=== PATIENT | male | born 1955 | race Caucasian/White ===

== ENCOUNTER 2019-12-11 21:03 | Inpatient (IN) | payer MEDICAID, SELFPAY ==
--- NOTE | 2019-12-11 | ECG_ITS ---
Test Reason : AMS Blood Pressure : / mmHG Vent. Rate : 102 BPM Atrial Rate : 102 BPM P-R Int : 142 ms QRS Dur : 096 ms QT Int : 332 ms P-R-T Axes : 054 004 032 degrees QTc Int : 432 ms Sinus tachycardia RSR' or QR pattern in V1 suggests right ventricular conduction delay Otherwise normal ECG No previous ECGs available Referred By: Generic ED Physician Electronically Signed By:BINTA CARMEN MD
[2019-12-11 21:06] VITALS: BP 105/56; BP 114/70; PULSE 109; RESP 18; TEMP 37.7; O2SAT 96; BMI 16.2
--- NOTE | 2019-12-11 22:15 | PC.NURSE ---
PT ARRIVES FROM [facility] AFTER REPORTS OF INCREASED LETHARGY, FEVERS >100.4 AND COUGH. COVID + IN MAY. PT WARM TO TOUCH, ALERT TO PERSON ONLY, AT BASELINE. LUNG SOUNDS DIM, RALES IN LOWER LOBES. 18G IN L AC. S SLIGHTLY TACHYCARDIC IN SR ON CAN CONVEYOR FEEDER. SEPTIC PROTOCOL INITIATED.
--- NOTE | 2019-12-11 22:21 | ED_ITS ---
HPI - General Adult General Chief complaint: Altered Mental Status Stated complaint: FEVER/WEAKNESS Time Seen by Provider: 12/11/19 21:57 Source: patient Mode of arrival: EMS Limitations: altered mental status History of Present Illness HPI narrative: patient comes to the emergency room via EMS from [facility] Darion wynn was sent here for worsening lethargy and fever. Patient is unable to give any history MD complaint: fever, lethargy Onset (ago): hour(s) Severity: moderate Related Data Home Medications Medication Instructions Recorded Confirmed gemfibrozil [Lopid] 600 mg PO BID 12/12/19 12/12/19 hydrocortisone acetate [Tucks 1 ea Q4-5H PRN 12/12/19 12/12/19 Hydrocortisone] ibuprofen 600 mg PO Q6H PRN 12/12/19 12/12/19 risperidone 3 mg PO BID 12/12/19 12/12/19 sennosides [senna] 8.6 mg PO DAILY PRN 12/12/19 12/12/19 tramadol 100 mg PO BID PRN 12/12/19 12/12/19 Allergies Allergy/AdvReac Type Severity Reaction Status Date / Time No Known Allergies Allergy Verified 12/11/19 21:13 Review of Systems Review of Systems: Yes Unobtainable due to mental condition PMFSH Past Medical History Medical History Hyperlipidemia Hypertension Schizophrenia Social History Social History Alcohol intake: unknown Smoking Status: Unknown if ever smoked Use of substances other than those prescribed or required for medical reasons: Unknown Advance Directives: No Advance Directives Information Provided: No Physical Exam Vital Signs: Vital Signs: Vital Signs Temp Pulse Resp BP Pulse Ox 12/12/19 04:59 100.1 F 90 18 126/70 96 12/12/19 02:55 101 F H 110 H 20 119/43 L 96 12/12/19 00:51 101.6 F H 104 H 22 H 133/65 96 12/11/19 23:25 99 25 H 116/60 99 12/11/19 21:06 99.9 F 109 H 18 105/56 L 96 Body Mass Index 16.2 Appearance: Alert. Oriented X1 at baseline. No acute distress. Eyes: Pupils equal, round and reactive to light. ENT: Pharynx normal. Neck: Normal inspection. Neck supple. No lymph nodes noted. No crepitus CVS: mildly tachycardic, normal rhythm. Pulses normal. Normal S1 and S2 Respiratory: No respiratory distress. bilateral rales and crackles Abdomen: Soft and nontender. No rigidity. No distention. good BS x4 Skin: Skin warm and clammy. Normal skin color. Extremities: No lower extremity edema. No lower extremity edema. No Lacerations. No Rash Neuro: Oriented X 3. No motor deficit. No sensory deficit. Moving all extermities. No slurred speech. Course Course Course Narrative: Patient continues having fever. At this moment, no source of infection has identified. Patient has fever of unknown origin, at this time (3:05am), sepsis is not suspected, CT of abdomen pending Medical Decision Making Lab Data Result diagrams: 12/11/19 22:27 12/11/19 22:27 Labs: Lab Results 12/11/19 12/11/19 12/11/19 Range/Units 22:27 22:27 22:27 WBC 12.7 H (4.8-10.8) X10*3/uL RBC 4.18 L (4.60-5.80) X10*6/uL Hgb 12.2 L (14.0-18.0) g/dl Hct 37.1 L (42-52) % MCV 88.8 (80-98) fL MCH 29.2 (27.0-33.0) pg MCHC 32.9 (31.0-36.0) g/dl RDW 13.2 (11.0-16.0) % Plt Count 152 L (160-400) X10*3/uL MPV 10.5 (9.4-12.4) fL Immature Gran % (Auto) 0.4 (0.0-0.4) % Neut % (Auto) 81.1 H (45-73) % Lymph % (Auto) 11.6 L (20-40) % Gillespie % (Auto) 6.6 (2-11) % Eos % (Auto) 0.1 (0-4) % Baso % (Auto) 0.2 (0-2) % Lymph # (Auto) 1.5 (1.2-4.9) X10*3/uL Gillespie # (Auto) 0.8 (0.1-1.2) X10*3/uL Eos # (Auto) 0.0 (0.0-0.4) X10*3/uL Baso # (Auto) 0.0 (0.0-0.2) X10*3/uL Abs Immat Gran (auto) 0.05 H (0.00-0.03) X10*3/uL Absolute Neuts (auto) 10.3 H (2.0-8.3) X10*3/uL Absolute Nucleated RBC 0.000 (0.0-0.012) X10*3/uL Nucleated RBC % (auto) 0.0 (0.0-0.2) /100WBC Hold Blue Top SEE NOTE Sodium 137 (135-145) mmol/L Potassium 4.1 (3.3-5.1) mmol/l Chloride 102 (96-108) mmol/L Carbon Dioxide 24 (22-29) mmol/L Anion Gap 15 (12-20) BUN 11 (9-16) mg/dL Creatinine 0.82 (0.5-1.4) mg/dL Estim Creat Clear Calc 62.5 Estimated GFR > 60 Random Glucose 108 (60-115) mg/dL Lactic Acid (0.5-2.0) mmol/L Calcium 8.9 (8.4-10.2) mg/dL Total Bilirubin 0.5 (0.0-1.0) mg/dL Direct Bilirubin 0.3 (0.0-0.5) mg/dL AST 37 (5-37) U/L ALT 30 (0-40) U/L Alkaline Phosphatase 69 (39-117) U/L Total Protein 7.5 (6.5-8.0) g/dL Albumin 4.5 (3.5-5.0) g/dL Urine Color Urine Appearance Urine pH (5.0-8.0) Ur Specific [place] (1.005-1.025) Urine Protein (NEG-TRACE) MG/DL Urine Glucose (UA) (NEG) MG/DL Urine Ketones (NEG) MG/DL Urine Blood (NEG) Urine Nitrite (NEG) Ur Leukocyte Esterase (NEG) Urine Opiates Screen (Not Detect) Ur Barbiturates Screen (Not Detect) Ur Phencyclidine Scrn (Not Detect) Ur Amphetamines Screen (Not Detect) U Benzodiazepines Scrn (Not Detect) Urine Cocaine Screen (Not Detect) U Marijuana (THC) Screen (Not Detect) Ethyl Alcohol mg/dL Coronavirus (PCR) (Negative) 12/11/19 12/11/19 12/11/19 Range/Units 22:27 22:27 22:40 WBC (4.8-10.8) X10*3/uL RBC (4.60-5.80) X10*6/uL Hgb (14.0-18.0) g/dl Hct (42-52) % MCV (80-98) fL MCH (27.0-33.0) pg MCHC (31.0-36.0) g/dl RDW (11.0-16.0) % Plt Count (160-400) X10*3/uL MPV (9.4-12.4) fL Immature Gran % (Auto) (0.0-0.4) % Neut % (Auto) (45-73) % Lymph % (Auto) (20-40) % Gillespie % (Auto) (2-11) % Eos % (Auto) (0-4) % Baso % (Auto) (0-2) % Lymph # (Auto) (1.2-4.9) X10*3/uL Gillespie # (Auto) (0.1-1.2) X10*3/uL Eos # (Auto) (0.0-0.4) X10*3/uL Baso # (Auto) (0.0-0.2) X10*3/uL Abs Immat Gran (auto) (0.00-0.03) X10*3/uL Absolute Neuts (auto) (2.0-8.3) X10*3/uL Absolute Nucleated RBC (0.0-0.012) X10*3/uL Nucleated RBC % (auto) (0.0-0.2) /100WBC Hold Blue Top Sodium (135-145) mmol/L Potassium (3.3-5.1) mmol/l Chloride (96-108) mmol/L Carbon Dioxide (22-29) mmol/L Anion Gap (12-20) BUN (9-16) mg/dL Creatinine (0.5-1.4) mg/dL Estim Creat Clear Calc Estimated GFR Random Glucose (60-115) mg/dL Lactic Acid 1.9 (0.5-2.0) mmol/L Calcium (8.4-10.2) mg/dL Total Bilirubin (0.0-1.0) mg/dL Direct Bilirubin (0.0-0.5) mg/dL AST (5-37) U/L ALT (0-40) U/L Alkaline Phosphatase (39-117) U/L Total Protein (6.5-8.0) g/dL Albumin (3.5-5.0) g/dL Urine Color YELLOW Urine Appearance CLEAR Urine pH 5.5 (5.0-8.0) Ur Specific [place] 1.010 (1.005-1.025) Urine Protein NEG (NEG-TRACE) MG/DL Urine Glucose (UA) NEG (NEG) MG/DL Urine Ketones NEG (NEG) MG/DL Urine Blood NEG (NEG) Urine Nitrite NEG (NEG) Ur Leukocyte Esterase NEG (NEG) Urine Opiates Screen (Not Detect) Ur Barbiturates Screen (Not Detect) Ur Phencyclidine Scrn (Not Detect) Ur Amphetamines Screen (Not Detect) U Benzodiazepines Scrn (Not Detect) Urine Cocaine Screen (Not Detect) U Marijuana (THC) Screen (Not Detect) Ethyl Alcohol < 10 mg/dL Coronavirus (PCR) (Negative) 12/11/19 12/12/19 Range/Units 22:40 00:52 WBC (4.8-10.8) X10*3/uL RBC (4.60-5.80) X10*6/uL Hgb (14.0-18.0) g/dl Hct (42-52) % MCV (80-98) fL MCH (27.0-33.0) pg MCHC (31.0-36.0) g/dl RDW (11.0-16.0) % Plt Count (160-400) X10*3/uL MPV (9.4-12.4) fL Immature Gran % (Auto) (0.0-0.4) % Neut % (Auto) (45-73) % Lymph % (Auto) (20-40) % Gillespie % (Auto) (2-11) % Eos % (Auto) (0-4) % Baso % (Auto) (0-2) % Lymph # (Auto) (1.2-4.9) X10*3/uL Gillespie # (Auto) (0.1-1.2) X10*3/uL Eos # (Auto) (0.0-0.4) X10*3/uL Baso # (Auto) (0.0-0.2) X10*3/uL Abs Immat Gran (auto) (0.00-0.03) X10*3/uL Absolute Neuts (auto) (2.0-8.3) X10*3/uL Absolute Nucleated RBC (0.0-0.012) X10*3/uL Nucleated RBC % (auto) (0.0-0.2) /100WBC Hold Blue Top Sodium (135-145) mmol/L Potassium (3.3-5.1) mmol/l Chloride (96-108) mmol/L Carbon Dioxide (22-29) mmol/L Anion Gap (12-20) BUN (9-16) mg/dL Creatinine (0.5-1.4) mg/dL Estim Creat Clear Calc Estimated GFR Random Glucose (60-115) mg/dL Lactic Acid (0.5-2.0) mmol/L Calcium (8.4-10.2) mg/dL Total Bilirubin (0.0-1.0) mg/dL Direct Bilirubin (0.0-0.5) mg/dL AST (5-37) U/L ALT (0-40) U/L Alkaline Phosphatase (39-117) U/L Total Protein (6.5-8.0) g/dL Albumin (3.5-5.0) g/dL Urine Color Urine Appearance Urine pH (5.0-8.0) Ur Specific [place] (1.005-1.025) Urine Protein (NEG-TRACE) MG/DL Urine Glucose (UA) (NEG) MG/DL Urine Ketones (NEG) MG/DL Urine Blood (NEG) Urine Nitrite (NEG) Ur Leukocyte Esterase (NEG) Urine Opiates Screen Not Detected (Not Detect) Ur Barbiturates Screen Not Detected (Not Detect) Ur Phencyclidine Scrn Not Detected (Not Detect) Ur Amphetamines Screen Not Detected (Not Detect) U Benzodiazepines Scrn POSITIVE H (Not Detect) Urine Cocaine Screen Not Detected (Not Detect) U Marijuana (THC) Screen Not Detected (Not Detect) Ethyl Alcohol mg/dL Coronavirus (PCR) NEGATIVE (Negative) Imaging Data Chest x-ray: Radiologist's impression: Lung volume is low. This causes crowding of the bronchovascular markings. Allowing for low inspiratory effort there does not appear to be significant pulmonary vascular congestion. There is no focal consolidation. There is no pleural effusion. The heart size is normal. The cardiac and mediastinal contours are normal. There are calcifications of the thoracic aorta. There are multilevel degenerative changes of dorsal spine. EKG: Sinus rhythm, heart rate 102, QTC 432, no ST elevations or depressions, no T-wave inversions CT chest: 1. No suspicious findings for pneumonia. 2. Enlarged subcarinal lymph node which may be reactive, though a malignant etiology would be difficult to entirely exclude in the proper clinical setting. 3. Nonspecific subpleural reticulation bilaterally, suboptimally assessed in the setting of respiratory motion artifact. Mild fibrosis cannot be excluded. 4. Coronary artery calcifications. Correlation with cardiac risk factors is recommended. 5. Splenomegaly. 6. Chronic appearing anterior wedge T12 compression deformity. CT of the abdomen: 1. No acute findings identified in the abdomen/pelvis. 2. Splenomegaly. I discussed with our hospitalist, the source of infection is unclear. Discharge Plan Discharge Clinical Impression: Fever of unknown origin Altered mental status Qualifiers: Altered mental status type: unspecified Qualified Code(s): R41.82 - Altered mental status, unspecified Patient Disposition: Admitted As Inpatient
--- NOTE | 2019-12-11 22:31 | XR_ITS ---
EXAMINATION: XR CHEST CLINICAL INFORMATION: Sepsis COMPARISON: None TECHNIQUE: Frontal portable view of the chest was obtained. 10:50 PM FINDINGS: Lung volume is low. This causes crowding of the bronchovascular markings. Allowing for low inspiratory effort there does not appear to be significant pulmonary vascular congestion. There is no focal consolidation. There is no pleural effusion. The heart size is normal. The cardiac and mediastinal contours are normal. There are calcifications of the thoracic aorta. There are multilevel degenerative changes of dorsal spine. IMPRESSION: No acute abnormality of chest.
[2019-12-11 22:35] LABS: Basophils Percent Auto 0.2 % (0-2); Eosinophils Percent Auto 0.1 % (0-4); Hematocrit 37.1 % (42-52); Hemoglobin 12.2 g/dl (14.0-18.0); Imm Gran Abs Auto 0.05 X10*3/uL (0.00-0.03); Imm Gran Pct Auto 0.4 % (0.0-0.4); Lymphocytes Absolute Auto 1.5 X10*3/uL (1.2-4.9); Lymphocytes Percent Auto 11.6 % (20-40); MANUAL DIFF FLAG NO; Mean Corpuscular HGB Conc 32.9 g/dl (31.0-36.0); Mean Corpuscular Hemoglobin 29.2 pg (27.0-33.0); Mean Corpuscular Volume 88.8 fL (80-98); Mean Platelet Volume 10.5 fL (9.4-12.4); Monocytes Absolute Auto 0.8 X10*3/uL (0.1-1.2); Monocytes Percent Auto 6.6 % (2-11); Neutrophils Absolute Auto 10.3 X10*3/uL (2.0-8.3); Neutrophils Percent Auto 81.1 % (45-73); Platelet Count 152 X10*3/uL (160-400); Red Blood Count 4.18 X10*6/uL (4.60-5.80); Red Cell Distribution Width 13.2 % (11.0-16.0); White Blood Count 12.7 X10*3/uL (4.8-10.8)
[2019-12-11 22:46] LABS: Glucose Urine UA NEG (NEG); Leukocyte Esterase Urine NEG (NEG); Nitrite Urine NEG (NEG); PH 5.5 (5.0-8.0); Urine Blood NEG (NEG); Urine Ketones NEG (NEG); Urine Protein NEG (NEG-TRACE)
[2019-12-11 22:47] LABS: Appearance Urine CLEAR; Color Urine YELLOW
[2019-12-11 22:56] LABS: Lactic Acid 1.9 mmol/L (0.5-2.0)
[2019-12-11 22:57] LABS: Ethanol < 10 mg/dL
[2019-12-11 22:59] LABS: Anion Gap 15 (12-20); Blood Urea Nitrogen 11 mg/dL (9-16); Calcium 8.9 mg/dL (8.4-10.2); Carbon Dioxide 24 mmol/L (22-29); Chloride 102 mmol/L (96-108); Creatinine Clr Calc Pharmacy 62.5; Estimated Glomerular Filt Rate > 60; Glucose Random 108 mg/dL (60-115); Potassium 4.1 mmol/l (3.3-5.1); Sodium 137 mmol/L (135-145)
[2019-12-11 23:16] LABS: Amphetamine Screen Urine Not Detected (Not Detect); Barbiturates, Urine Not Detected (Not Detect); Benzodiazepines Screen Urine POSITIVE (Not Detect); Cannabinoid Screen Urine Not Detected (Not Detect); Cocaine Screen Urine Not Detected (Not Detect); Opiate Screen Urine Not Detected (Not Detect); Phencyclidine Screen Urine Not Detected (Not Detect)
--- NOTE | 2019-12-11 23:23 | PC.NURSE ---
pt coming from [facility]. report taken from layla connor. pt at baseline per [facility] staff is calm and cooperative and independant at baseline. arrives with fever. given rectal tylenol by this rn. tolerated well. pending labs.
[2019-12-11 23:25] VITALS: BP 116/60; PULSE 99; RESP 25; O2SAT 99
[2019-12-11 23:49] LABS: Alanine Aminotransferase 30 U/L (0-40); Albumin Level 4.5 g/dL (3.5-5.0); Alkaline Phosphatase 69 U/L (39-117); Aspartate Amino Transferase 37 U/L (5-37); Bilirubin Direct 0.3 mg/dL (0.0-0.5); Bilirubin Total 0.5 mg/dL (0.0-1.0); Total Protein 7.5 g/dL (6.5-8.0)
[2019-12-12] VITALS (9 sets, daily range): BP systolic 113–137; BP diastolic 43–70; PULSE 81–110; RESP 18–22; TEMP 36.7–38.7; O2SAT 95–98; BMI 16.2
--- NOTE | 2019-12-12 00:53 | PC.NURSE ---
after rectal tylenol rectal temp 101.6 provider aware. other vitals wnl. pt swabbed for covid
--- NOTE | 2019-12-12 01:12 | CT_ITS ---
EXAMINATION: CT CHEST WITHOUT CONTRAST CLINICAL INFORMATION: Rule out pneumonia COMPARISON: 12/11/2019 TECHNIQUE: Multidetector volumetric CT imaging of the chest was done. Axial MIP volume rendering provided. Sagittal and coronal reformatted images were obtained. This CT examination was performed using dose optimization techniques as appropriate, variously including the following: *Automated exposure control *Adjustment of mA and/or kV according to patient size (this includes techniques or standardized protocols for targeted exams where dose is matched to indication/reason for exam; i.e. extremities or head) *Use of iterative reconstruction technique DLP: 368 mGy-cm FINDINGS: LUNGS: Suboptimal assessment due to respiratory motion artifact. No dense consolidations bilaterally. There is mild dependent opacity in the lower lobes favoring atelectasis. There is subpleural reticulation bilaterally, and a component of fibrosis cannot be excluded. MEDIASTINUM: The visualized thyroid gland is unremarkable. There is an enlarged subcarinal lymph node measuring 1.4 cm in short axis dimension. Scattered subcentimeter lymph nodes are present throughout the mediastinum. Cardiac size is within normal limits; no pericardial effusion. Coronary artery calcifications are present. Scattered atherosclerotic calcifications are present. PLEURA: There is no pleural effusion. No pleural mass or thickening. AXILLA: No lymphadenopathy. UPPER ABDOMEN: Calcified granulomas noted in the liver. Mildly enlarged spleen, measuring 14.6 cm in the axial plane. Calcifications in the left renal violette may be vascular. OSSEOUS STRUCTURES: Degenerative changes are noted in the spine. There is chronic appearing anterior compression deformity of T12. IMPRESSION: 1. No suspicious findings for pneumonia. 2. Enlarged subcarinal lymph node which may be reactive, though a malignant etiology would be difficult to entirely exclude in the proper clinical setting. 3. Nonspecific subpleural reticulation bilaterally, suboptimally assessed in the setting of respiratory motion artifact. Mild fibrosis cannot be excluded. 4. Coronary artery calcifications. Correlation with cardiac risk factors is recommended. 5. Splenomegaly. 6. Chronic appearing anterior wedge T12 compression deformity.
[2019-12-12 02:04] LABS: SARS COV2 PCR INHOUSE NEGATIVE (Negative)
--- NOTE | 2019-12-12 02:59 | CT_ITS ---
EXAMINATION: CT ABDOMEN AND PELVIS WITH CONTRAST CLINICAL INFORMATION: Sepsis, unknown source COMPARISON: None TECHNIQUE: Multidetector volumetric images were obtained from the superior aspect of the liver through the pubic symphysis following administration 85 mL of Omnipaque 350 intravenous contrast. Sagittal and coronal reformatted images were obtained on the technologist's workstation. Oral contrast: No This CT examination was performed using dose optimization techniques as appropriate, variously including the following: *Automated exposure control *Adjustment of mA and/or kV according to patient size (this includes techniques or standardized protocols for targeted exams where dose is matched to indication/reason for exam; i.e. extremities or head) *Use of iterative reconstruction technique DLP: 589 mGy-cm FINDINGS: Partially limited assessment in some regions due to motion artifact. LUNG BASES: Bibasilar subsegmental atelectasis. LIVER, GALLBLADDER, AND BILIARY TREE: The liver is normal in size, shape, and attenuation. No focal hepatic lesion or biliary ductal dilatation is present. The gallbladder is unremarkable with no evidence of radiopaque gallstones, gallbladder wall thickening, or obvious pericholecystic inflammatory changes. PANCREAS: Unremarkable. SPLEEN: Enlarged, measuring approximately 14.6 cm in the axial plane. ADRENAL GLANDS: Unremarkable. KIDNEYS AND URETERS: The kidneys are normal in size, shape, and attenuation. No hydronephrosis, hydroureter, or obstructing calculi seen. No perinephric stranding. BLADDER: Unremarkable. GASTROINTESTINAL TRACT: The small and large bowel are unremarkable. The appendix is unremarkable. No free fluid or free air is seen. ABDOMINAL WALL: Fat-containing right inguinal hernia. LYMPH NODES: Normal. VASCULAR: There is atherosclerotic calcification along the aorta and iliac arteries. PELVIC VISCERA: Unremarkable. OSSEOUS STRUCTURES: Chronic appearing anterior wedge compression deformity of T12. IMPRESSION: 1. No acute findings identified in the abdomen/pelvis. 2. Splenomegaly.
[2019-12-12] MEDS: Piperacillin Sodium/Tazobactam 3.375 GM in 0.9 % Sodium Chloride 50 ML IV (03:25)
[2019-12-12] MEDS: 0.9 % Sodium Chloride 1,000 ML 999 ML IVCONT (03:26)
[2019-12-12] MEDS: Acetaminophen 325 MG TABLET 650 MG PO (03:27)
[2019-12-12] MEDS: Acetaminophen Supp 650 MG SUPP.RECT PR (03:29)
[2019-12-12] MEDS: iohexoL 350 MG/ML 100 ML INFUS..BTL 85 ML IV (03:59)
--- NOTE | 2019-12-12 05:37 | PC.NURSE ---
pending report to floor at this time.
--- NOTE | 2019-12-12 06:05 | P.HPIM_ITS ---
History of Present Illness Date of Service: 12/12/19 Chief Complaint: fever and lethargy 64-year-old male resident of [facility] who presents to the hospice with lethargy, cough and fever. patient is only oriented to self at baseline. he is currently lethargic and unable to give any history. It appears the patient was found with lethargy and fever at intermediate. Unable to obtain full review of system is patient the disoriented at baseline P on arrival to the ED patient has a temperature of 101.6?, heart rate of 104, respiratory rate of 22 blood pressure of 133/65 and satting 96% on room labs are significant for WBC count 12.7, otherwise unremarkable. Imaging done in the ED showed negative chest x-ray, chest CT showed no suspicion finding for pneumonia, enlarged sub carinal lymph node which may be reactive cup nonspecific subpleural reticulation bilaterally suboptimally assessed in the setting of respiratory motion are to, mild fibrosis cannot be excluded, abdominal CT showed no acute abdominal findings COVID-19 neg I am unable to obtain any history from patient as he is clinically unable to give patient is also new to our system past medical history: Diabetes, schizophrenia past surgical history: Unknown family history: unknown social history: Comes from [facility], oriented to self own at baseline Review of Systems Review of Systems: was unable to review [facility] Medical History Hyperlipidemia Hypertension Schizophrenia Social History Alcohol intake: unknown Smoking Status: Unknown if ever smoked Use of substances other than those prescribed or required for medical reasons: Unknown Advance Directives: No Advance Directives Information Provided: No Meds Allergies Allergy/AdvReac Type Severity Reaction Status Date / Time No Known Allergies Allergy Verified 12/11/19 21:13 Home Medications Medication Instructions Recorded Confirmed Type gemfibrozil [Lopid] 600 mg PO BID 12/12/19 12/12/19 History hydrocortisone acetate [Tucks 1 ea Q4-5H PRN 12/12/19 12/12/19 History Hydrocortisone] ibuprofen 600 mg PO Q6H PRN 12/12/19 12/12/19 History risperidone 3 mg PO BID 12/12/19 12/12/19 History sennosides [senna] 8.6 mg PO DAILY PRN 12/12/19 12/12/19 History tramadol 100 mg PO BID PRN 12/12/19 12/12/19 History Physical Exam Vital Signs and Narrative: Vital Signs: Last Vital Signs Temp 100.1 F 12/12/19 04:59 Pulse 90 12/12/19 04:59 Resp 18 12/12/19 04:59 BP 126/70 12/12/19 04:59 Pulse Ox 96 12/12/19 04:59 Body Mass Index 16.2 Const: General: cooperative and no acute distress Eyes: General: appearance normal, both eyes and all related structures Resp: Effort & Inspection: normal respiratory effort and able to speak in complete sentences Auscultation: clear to auscultation bilaterally Cardio: Rate: regular rate Rhythm: regular rhythm GI: Palpation (GI): Soft to palpation Auscultation: normal bowel sounds Skin: General skin exam: no rashes or lesions noted Neuro: Cognition (Neuro): normal cognition Extrem: General: Yes normal to inspection Results Labs Labs: Laboratory Tests 12/11/19 12/11/19 12/11/19 22:27 22:27 22:27 WBC 12.7 H RBC 4.18 L Hgb 12.2 L Hct 37.1 L MCV 88.8 MCH 29.2 MCHC 32.9 RDW 13.2 Plt Count 152 L MPV 10.5 Immature Gran % (Auto) 0.4 Neut % (Auto) 81.1 H Lymph % (Auto) 11.6 L Carlisle % (Auto) 6.6 Eos % (Auto) 0.1 Baso % (Auto) 0.2 Lymph # (Auto) 1.5 Carlisle # (Auto) 0.8 Eos # (Auto) 0.0 Baso # (Auto) 0.0 Abs Immat Gran (auto) 0.05 H Absolute Neuts (auto) 10.3 H Absolute Nucleated RBC 0.000 Nucleated RBC % (auto) 0.0 Hold Blue Top SEE NOTE Sodium 137 Potassium 4.1 Chloride 102 Carbon Dioxide 24 Anion Gap 15 BUN 11 Creatinine 0.82 Estim Creat Clear Calc 62.5 Estimated GFR > 60 Random Glucose 108 Lactic Acid Calcium 8.9 Total Bilirubin 0.5 Direct Bilirubin 0.3 AST 37 ALT 30 Alkaline Phosphatase 69 Total Protein 7.5 Albumin 4.5 Urine Color Urine Appearance Urine pH Ur Specific Bowman Urine Protein Urine Glucose (UA) Urine Ketones Urine Blood Urine Nitrite Ur Leukocyte Esterase Urine Opiates Screen Ur Barbiturates Screen Ur Phencyclidine Scrn Ur Amphetamines Screen U Benzodiazepines Scrn Urine Cocaine Screen U Marijuana (THC) Screen Ethyl Alcohol Coronavirus (PCR) 12/11/19 12/11/19 12/11/19 22:27 22:27 22:40 WBC RBC Hgb Hct MCV MCH MCHC RDW Plt Count MPV Immature Gran % (Auto) Neut % (Auto) Lymph % (Auto) Carlisle % (Auto) Eos % (Auto) Baso % (Auto) Lymph # (Auto) Carlisle # (Auto) Eos # (Auto) Baso # (Auto) Abs Immat Gran (auto) Absolute Neuts (auto) Absolute Nucleated RBC Nucleated RBC % (auto) Hold Blue Top Sodium Potassium Chloride Carbon Dioxide Anion Gap BUN Creatinine Estim Creat Clear Calc Estimated GFR Random Glucose Lactic Acid 1.9 Calcium Total Bilirubin Direct Bilirubin AST ALT Alkaline Phosphatase Total Protein Albumin Urine Color YELLOW Urine Appearance CLEAR Urine pH 5.5 Ur Specific Bowman 1.010 Urine Protein NEG Urine Glucose (UA) NEG Urine Ketones NEG Urine Blood NEG Urine Nitrite NEG Ur Leukocyte Esterase NEG Urine Opiates Screen Ur Barbiturates Screen Ur Phencyclidine Scrn Ur Amphetamines Screen U Benzodiazepines Scrn Urine Cocaine Screen U Marijuana (THC) Screen Ethyl Alcohol < 10 Coronavirus (PCR) 12/11/19 12/12/19 22:40 00:52 WBC RBC Hgb Hct MCV MCH MCHC RDW Plt Count MPV Immature Gran % (Auto) Neut % (Auto) Lymph % (Auto) Carlisle % (Auto) Eos % (Auto) Baso % (Auto) Lymph # (Auto) Carlisle # (Auto) Eos # (Auto) Baso # (Auto) Abs Immat Gran (auto) Absolute Neuts (auto) Absolute Nucleated RBC Nucleated RBC % (auto) Hold Blue Top Sodium Potassium Chloride Carbon Dioxide Anion Gap BUN Creatinine Estim Creat Clear Calc Estimated GFR Random Glucose Lactic Acid Calcium Total Bilirubin Direct Bilirubin AST ALT Alkaline Phosphatase Total Protein Albumin Urine Color Urine Appearance Urine pH Ur Specific Bowman Urine Protein Urine Glucose (UA) Urine Ketones Urine Blood Urine Nitrite Ur Leukocyte Esterase Urine Opiates Screen Not Detected Ur Barbiturates Screen Not Detected Ur Phencyclidine Scrn Not Detected Ur Amphetamines Screen Not Detected U Benzodiazepines Scrn POSITIVE H Urine Cocaine Screen Not Detected U Marijuana (THC) Screen Not Detected Ethyl Alcohol Coronavirus (PCR) NEGATIVE Imaging CT scan - abdomen: Radiologist's impression: IMPRESSION: 1. No acute findings identified in the abdomen/pelvis. 2. Splenomegaly. CT scan - chest: Radiologist's impression: IMPRESSION: 1. No suspicious findings for pneumonia. 2. Enlarged subcarinal lymph node which may be reactive, though a malignant etiology would be difficult to entirely exclude in the proper clinical setting. 3. Nonspecific subpleural reticulation bilaterally, suboptimally assessed in the setting of respiratory motion artifact. Mild fibrosis cannot be excluded. 4. Coronary artery calcifications. Correlation with cardiac risk factors is recommended. 5. Splenomegaly. 6. Chronic appearing anterior wedge T12 compression deformity. Assessment and Plan (1) Sepsis: Status: Acute (2) Fever of unknown origin: Status: Acute (3) Altered mental status: Qualifiers: Altered mental status type: unspecified Qualified Code(s): R41.82 - Altered mental status, unspecified Status: Acute this is a 64 year old [facility] resident who presents to the hospital with fever and lethargy # Sepsis - Febrile, tachycardia, leukocytosis - imaging and work up negative for source, possibly Pna although not clear from CT of chest, UA negative, no reported soft tissue infection - COVID 19 negative Plan: - Broad spectrum abx - consult ID - Blood culture # Fever of unknown origin - all workup reveals no source at this time - pt has been started on abx and cultures drawan - Will consult ID for further guidance # Encephalopathy - Most likely 2/2 to the infection - pt only oriented to self at baseline Plan: - IV abx - fluids # DM - Hold po med - Start low dose sliding scale insul
--- NOTE | 2019-12-12 06:08 | PC.NURSE ---
second attempt to give report to floor. charge nurse aware
--- NOTE | 2019-12-12 06:15 | PC.NURSE ---
REPORT GIVEN TO DAR[facility] ON [facility] [place].
[2019-12-12 07:51] LABS: Glucose, Whole Blood 101 mg/dL (60-115)
[2019-12-12] MEDS: 0.9 % Sodium Chloride Flush 3 ML SYRINGE IVFLUSH ×2 (08:23→16:57)
[2019-12-12] MEDS: Heparin Sodium,Porcine 5,000 UNIT/ML VIAL 5000 UNIT SUBCUT (08:23)
--- NOTE | 2019-12-12 08:27 | MHC.CM.PN ---
pt is from [facility]. dc plan is to return there when medically stable . a ref. to [facility] has been made. cm to cont. to follow.
[2019-12-12] MEDS: risperiDONE 3 MG TABLET PO (09:46)
--- NOTE | 2019-12-12 10:12 | MHC.CLN ---
PT IS SEVERELY MALNOURISHED WILL START 1500 DIABETIC DIET AND GLUCERNA BID TO INCREASE PO SEE ALSO NURITION ASSESSMENT
[2019-12-12 11:32] LABS: Glucose, Whole Blood 158 mg/dL (60-115)
[2019-12-12] MEDS: Insulin Lispro 100 UNIT/ML 3 ML VIAL SUBCUT (12:03)
--- NOTE | 2019-12-12 12:40 | P.CNID_ITS ---
History of Present Illness Data of Consult Service Date: 12/12/19 Requesting physician: Darion Acosta Primary Care Provider: DO DANIELLA Callejas Reason for consult: fever and lethargy [facility] with temperature and lethargy for a day No one else is ill He has no cough,nausea,vomiting CXR negative C PMFSH Past Medical History Medical History Hyperlipidemia Hypertension Schizophrenia Social History Social History Household Members: Other Housing: Half-Way Alcohol intake: unknown Smoking Status: Unknown if ever smoked Use of substances other than those prescribed or required for medical reasons: No Currently Displaying Signs/Symptoms of Drug Intoxication Withdrawal: No Advance Directives: No Advance Directives Information Provided: No Do you have thoughts of harming others: None Do you have a plan to hurt others: No Plan Recently lost weight without trying: No service: No Current occupational status: unemployed Meds Allergies Allergy/AdvReac Type Severity Reaction Status Date / Time No Known Allergies Allergy Verified 12/11/19 21:13 Home Medications Medication Instructions Recorded Confirmed Type gemfibrozil [Lopid] 600 mg PO BID 12/12/19 12/12/19 History hydrocortisone acetate 1 ea Q4-5H PRN 12/12/19 12/12/19 History ibuprofen 600 mg PO Q6H PRN 12/12/19 12/12/19 History risperidone 3 mg PO BID 12/12/19 12/12/19 History sennosides [senna] 8.6 mg PO DAILY PRN 12/12/19 12/12/19 History tramadol 100 mg PO BID PRN 12/12/19 12/12/19 History Physical Exam Vital Signs: Vital Signs: Vital Signs Temp Pulse Resp BP Pulse Ox 12/12/19 08:00 97 12/12/19 07:46 98.0 F 86 18 134/63 95 12/12/19 04:59 100.1 F 90 18 126/70 96 12/12/19 02:55 101 F H 110 H 20 119/43 L 96 12/12/19 00:51 101.6 F H 104 H 22 H 133/65 96 12/11/19 23:25 99 25 H 116/60 99 12/11/19 21:06 99.9 F 109 H 18 105/56 L 96 Body Mass Index 16.2 Const: General: no acute distress Orientation/consciousness: oriented to person HENMT: Head: Yes normal to inspection Resp: Effort & Inspection: normal respiratory effort Cardio: Rate: regular rate Rhythm: regular rhythm GI: Inspection: Yes normal to inspection : General: Yes no CVA tenderness Back/Spine/Pelvis: Back: no CVA tenderness Skin: General skin exam: no rashes or lesions noted Neuro: General: oriented to person Assessment and Plan (1) Sepsis: Status: Acute He has had improvement in mental status There is no obvious signs of infection source Suggest Check blood cultures and COVID May hold antibiotics at this time (2) Altered mental status: Qualifiers: Altered mental status type: unspecified Qualified Code(s): R41.82 - Altered mental status, unspecified Status: Acute (3) Fever of unknown origin: Status: Acute Results Labs CBC & Chem 7: 12/11/19 22:27 12/13/19 10:38 Labs: Short CBC 12/11/19 Range/Units 22:27 WBC 12.7 H (4.8-10.8) X10*3/uL Hgb 12.2 L (14.0-18.0) g/dl Hct 37.1 L (42-52) % Plt Count 152 L (160-400) X10*3/uL BMP 12/11/19 22:27 Sodium 137 Potassium 4.1 Chloride 102 Carbon Dioxide 24 BUN 11 Creatinine 0.82 Calcium 8.9 Liver Function 12/11/19 Range/Units 22:27 Total Bilirubin 0.5 (0.0-1.0) mg/dL Direct Bilirubin 0.3 (0.0-0.5) mg/dL AST 37 (5-37) U/L ALT 30 (0-40) U/L Alkaline Phosphatase 69 (39-117) U/L Albumin 4.5 (3.5-5.0) g/dL Urine 12/11/19 Range/Units 22:40 Urine Color YELLOW Urine Appearance CLEAR Urine pH 5.5 (5.0-8.0) Ur Specific Henderson 1.010 (1.005-1.025) Urine Protein NEG (NEG-TRACE) MG/DL Urine Glucose (UA) NEG (NEG) MG/DL
--- NOTE | 2019-12-12 15:00 | P.EN_ITS ---
Event Note Event Note: patient seen examined offers no acute complaints, awake , alert no recurrent fever since admit case discussed with ID withhold antibiotics since no a cause of arm fever found within normal chest x-ray, normal urinalysis, COVID test negative will follow blood cultures. Patient is resident of [facility]
--- NOTE | 2019-12-12 17:42 | PC.NURSE ---
Nurse told in report this morning that patient was given vanco and zosyn in ed. meds flagging to be given. Nurse spoke with pharmacy and explained that it was reported off the meds were given in ed. md in to see patient and reports that since patient has remained a febrile to hold iv abt at this time. Patient still remains afebrile and ID also said that abt may be held. clarified with md since 7pm vanco flagging and md says to hold. Vanco not administered.
--- NOTE | 2019-12-12 20:52 | PC.NURSE ---
PRIOR TO 2100 MEDICATION ADMINISTRATION, POC WAS ATTEMPTED TO BE DONE BUT WAS REFUSED BY PATIENT. PROVIDER AWARE AND OTHER SCHEDULED MEDICATIONS TO BE GIVEN. UPON ARRIVAL TO ROOM WITH SCHEDULED MEDICATIONS, PATIENT ADAMANTLY REFUSING TO TAKE THEM. WHEN APPROACHING PATIENT HE IS RESISTANT TO ANY TYPE OF CARE OR ASSESSMENT. HE DOES NOT APPEAR TO BE IN ANY ACUTE DISTRESS. HE IS CURRENTLY RESTING COMFORTABLY IN A CHAIR WHILE WATCHING TV. DOCTOR HAYDEE IS AWARE OF PATIENTS BEHAVIOR AND IS OKAY WITH NOT GIVING THESE MEDICATIONS AT THIS TIME. WILL CONTINUE TO MONITOR PATIENT FOR ANY CHANGE IN BEHAVIOR OR STATUS.
[2019-12-13 03:42] VITALS: BP 136/67; PULSE 82; RESP 17; TEMP 36.6; O2SAT 96
[2019-12-13] MEDS: risperiDONE 3 MG TABLET PO (07:58)
[2019-12-13 11:24] LABS: Anion Gap 12 (12-20); Blood Urea Nitrogen 10 mg/dL (9-16); Calcium 8.9 mg/dL (8.4-10.2); Carbon Dioxide 24 mmol/L (22-29); Chloride 109 mmol/L (96-108); Creatinine Clr Calc Pharmacy 75.4; Estimated Glomerular Filt Rate > 60; Glucose Random 153 mg/dL (60-115); Potassium 3.6 mmol/l (3.3-5.1); Sodium 141 mmol/L (135-145)
--- NOTE | 2019-12-13 11:41 | MHC.CM.PN ---
spoke with pts sister kanchan [phone] notified of dc [facility]
--- NOTE | 2019-12-13 12:25 | PM.DS ---
DS: Providers Provider Date of admission: 12/12/19 05:19 Primary care physician: Jose Rosas DO Consults: 12/12/19 06:24 Consult to Infectious Diseases Routine Consulting Provider: Edilia Coronado Reason for consultation: sepsis, fever, unknown source Has provider been notified: No DS: Diagnosis Discharge Diagnosis (1) Sepsis: Status: Acute (2) Altered mental status: Status: Acute (3) Fever of unknown origin: Status: Acute DS: Summary Hospital Course Hospital Course: 64-year-old gentleman resident of [facility] presented to [facility] with symptoms of lethargy, cough and fever all workup in the emergency room was unremarkable including chest x-ray, CT chest and CT abdomen and pelvis patient was noted to have a temp of 101.6 degrees with a heart rate of 104 respiratory rate of 22 a COVID-19 test was negative patient was admitted with SIRS patient remained afebrile since admission, blood cultures x2 are negative, patient seen by ID she recommends no antibiotics since no source of infection is found , patient seems to be at baseline level of mentation no evidence of sepsis, please delete diagnosis of sepsis SIRS resolved acute encephalopathy due to fever resolved continue all home medications as before Time Spent with Patient Time attestation: Total time spent providing and/or coordinating discharge services: Physical Exam Vital Signs: Vital Signs: Vital Signs Temp Pulse Resp BP Pulse Ox 12/13/19 03:42 97.9 F 82 17 136/67 96 12/12/19 23:35 98.1 F 81 18 137/65 96 12/12/19 19:02 98.4 F 105 H 18 132/60 97 12/12/19 15:54 98.4 F 95 18 113/65 98 Body Mass Index 16.2 General patient resting comfortably in no acute distress. Neck is supple no JVD. CVS regular rate rhythm, Respiratory lungs clear to auscultation, no respiratory distress, no wheeze, no rhonchi. Gastrointestinal abdomen soft, nontender, bowel sounds audible, no no guarding , no rigidity. Extremities no clubbing cyanosis or edema. Neuro nonfocal patient moving all 4 extremity. DS: Data Data Completed and Pending Labs on day of discharge: Labs from last 24 hours 12/13/19 10:38 Sodium 141 Potassium 3.6 Chloride 109 H Carbon Dioxide 24 Anion Gap 12 BUN 10 Creatinine 0.68 Estim Creat Clear Calc 75.4 Estimated GFR > 60 Random Glucose 153 H D Calcium 8.9 Preliminary micro results at discharge 12/11/19 22:28 Blood Culture - Preliminary Blood - Venous No growth after 24 hours. 12/11/19 22:27 Blood Culture - Preliminary Blood - Venous No growth after 24 hours. Discharge Plan Discharge Patient Disposition: Xfer SNF Referrals: [facility] [Outside] Jose Rosas DO [Primary Care Provider] - Discharge Medications: Continued sennosides [senna] 8.6 mg Tablet 8.6 mg PO DAILY PRN (Reason: Pain) RF: 0 risperidone 3 mg Tablet 3 mg PO BID RF: 0 gemfibrozil [Lopid] 600 mg Tablet 600 mg PO BID RF: 0 ibuprofen 600 mg Tablet 600 mg PO Q6H PRN (Reason: Pain, Severe) RF: 0 hydrocortisone acetate 1 % Ointment 1 ea Q4-5H PRN (Reason: Rectal Discomfort) RF: 0 tramadol 100 mg Tablet 100 mg PO BID PRN (Reason: Moderate Pain (Scale Score 5-6)) RF: 0 Discharge Orders: Discharge Order (Routine); Ordered 12/13/19 Ordered By: Darion Acosta Activity on Discharge: As tolerated Visit Report Forms: Patient Portal Discharge page Care Plan Goals: as per discharge plan Health Concerns: as per discharge plan Plan of Treatment: close outpatient follow-up with PCP
== END 2019-12-13 14:08 | disposition skilled nursing facility (03) | DRG 52 ==
LOC: HO.ED 12-12 05:03 → HO.IMC 12-12 05:35
PROVIDERS: Admitting Provider Internal Medicine; Emergency Provider Emergency Medicine; PCP Hospitalist; Visit Provider Hospitalist
DX: G93.40 Encephalopathy, unspecified (principal); R65.10 Systemic inflammatory response syndrome (SIRS) of non-infectious origin without acute organ dysfunction; F20.9 Schizophrenia, unspecified; E11.9 Type 2 diabetes mellitus without complications; E78.5 Hyperlipidemia, unspecified; I10 Essential (primary) hypertension; Z20.828 Contact with and (suspected) exposure to other viral communicable diseases; Z79.1 Long term (current) use of non-steroidal anti-inflammatories (NSAID); Z79.891 Long term (current) use of opiate analgesic; Z79.899 Other long term (current) drug therapy
CPT/HCPCS: 36415; 71045; 71250; 74177; 80048; 80076; 80307; 80320; 81003; 82947; 83605; 85025; 87040; 87635; 93005; 96361; 96365; 99285

== ENCOUNTER 2020-01-25 18:42 | Inpatient (IN) | payer MEDICAID, SELFPAY ==
[2020-01-25 18:43] VITALS: BP 129/69; PULSE 104; RESP 13; TEMP 39.3; O2SAT 95; BMI 28.5
--- NOTE | 2020-01-25 18:51 | ECG_ITS ---
Test Reason : SEPSIS Blood Pressure : / mmHG Vent. Rate : 099 BPM Atrial Rate : 099 BPM P-R Int : 146 ms QRS Dur : 098 ms QT Int : 328 ms P-R-T Axes : 055 -05 027 degrees QTc Int : 420 ms Normal sinus rhythm Incomplete right bundle branch block Borderline ECG When compared with ECG of 11-DEC-2019 22:50, No significant change was found Referred By: Juli Sorto Electronically Signed By:BINTA CARMEN MD
--- NOTE | 2020-01-25 18:51 | XR_ITS ---
EXAMINATION: XR CHEST CLINICAL INFORMATION: Sepsis COMPARISON: Prior chest November 2019 TECHNIQUE: Frontal view of the chest was obtained. FINDINGS: No significant abnormality is noted involving the heart, lungs, mediastinum, bony thorax or soft tissues. XR/XR chest 1V IMPRESSION: Unremarkable examination.
--- NOTE | 2020-01-25 18:55 | CT_ITS ---
EXAMINATION: CT SOFT TISSUE NECK WITHOUT CONTRAST CLINICAL INFORMATION: Right ear swelling. Sepsis. COMPARISON: Head CT from today. TECHNIQUE: Helical imaging was performed in the axial plane with generation of coronal and sagittal reformatted images. This CT examination was performed using dose optimization techniques as appropriate, variously including the following: *Automated exposure control *Adjustment of mA and/or kV according to patient size (this includes techniques or standardized protocols for targeted exams where dose is matched to indication/reason for exam; i.e. extremities or head) *Use of iterative reconstruction technique DLP: 495 mGy-cm FINDINGS: There is asymmetric stranding in the subcutaneous tissues overlying the right parotid gland. Stranding extends superiorly, involving the entirety of the right anterior. Mild stranding extends posterior to the ear as well, overlying the region of the mastoids. There is no fluid collection identified. The parotid gland appears normal with symmetric appearance to the left. The mastoid air cells are well aerated. The middle ear cavity is well aerated. Cerumen within the external auditory canal. No cervical adenopathy is identified. The submandibular glands are normal. No contour abnormality is seen within the oral cavity or pharyngeal mucosal space. The laryngeal structures are normal. The parapharyngeal fat is preserved. No extra mucosal soft tissue mass or fluid collection is seen. No retropharyngeal fluid collection is seen. The thyroid gland is normal. The superior mediastinum is unremarkable. Peripheral opacities are noted at the lung apices. This could represent mild fibrotic change, as it is similar to previous chest CT.. Moderate opacification of the ethmoid air cells. The temporomandibular joints are normal. The patient is edentulous. No acute osseous abnormalities are seen. Degenerative changes are noted in the spine. The imaged portions of the brain parenchyma are unremarkable. CT/CT soft tissue neck wo con IMPRESSION: Soft tissue swelling centered at the right ear, with extension inferiorly superficial to the right parotid gland. There is no fluid collection. The parotid gland is homogenous and symmetric to the left, arguing against parotiditis. Inflammatory changes also extend superficial to the right mastoid air cells, but the mastoid air cells are clear, arguing against mastoiditis.
--- NOTE | 2020-01-25 18:55 | CT_ITS ---
EXAMINATION: CT HEAD WITHOUT CONTRAST CLINICAL INFORMATION: Left ear swelling sepsis COMPARISON: None TECHNIQUE: Contiguous axial imaging was performed from the skull base to vertex without intravenous administration of contrast. This CT examination was performed using dose optimization techniques as appropriate, variously including the following: *Automated exposure control *Adjustment of mA and/or kV according to patient size (this includes techniques or standardized protocols for targeted exams where dose is matched to indication/reason for exam; i.e. extremities or head) *Use of iterative reconstruction technique DLP: 758 mGy-cm FINDINGS: There is no evidence of acute intracranial hemorrhage or territorial infarction. No abnormal mass effect or midline shift is seen. Harkins to white matter differentiation is well preserved. No extra-axial fluid collections are identified. The ventricles are normal in size. There is no abnormal attenuation within the brain parenchyma. The osseous structures and soft tissues are normal. The mastoid air cells and visualized portions of the paranasal sinuses are well aerated. CT/CT head/brain wo con IMPRESSION: No acute intracranial pathology.
[2020-01-25 19:04] LABS: Basophils Percent Auto 0.2 % (0-2); Eosinophils Percent Auto 0.2 % (0-4); Hematocrit 37.6 % (42-52); Hemoglobin 12.5 g/dl (14.0-18.0); Imm Gran Abs Auto 0.06 X10*3/uL (0.00-0.03); Imm Gran Pct Auto 0.4 % (0.0-0.4); Lymphocytes Absolute Auto 1.7 X10*3/uL (1.2-4.9); Lymphocytes Percent Auto 12.4 % (20-40); Mean Corpuscular HGB Conc 33.2 g/dl (31.0-36.0); Mean Corpuscular Hemoglobin 29.8 pg (27.0-33.0); Mean Corpuscular Volume 89.5 fL (80-98); Mean Platelet Volume 10.7 fL (9.4-12.4); Monocytes Absolute Auto 0.9 X10*3/uL (0.1-1.2); Monocytes Percent Auto 6.6 % (2-11); Neutrophils Absolute Auto 10.8 X10*3/uL (2.0-8.3); Neutrophils Percent Auto 80.2 % (45-73); Platelet Count 157 X10*3/uL (160-400); Red Cell Distribution Width 13.6 % (11.0-16.0); White Blood Count 13.4 X10*3/uL (4.8-10.8)
[2020-01-25 19:05] LABS: MANUAL DIFF FLAG NO
--- NOTE | 2020-01-25 19:06 | ED_ITS ---
HPI - Fever General Chief Complaint: Skin/Abscess/Foreign Body Stated Complaint: cellulitis Time Seen by Provider: 01/25/20 18:51 Source: EMS and RN notes reviewed Mode of arrival: EMS Limitations: altered mental status ( history of traumatic brain injury, selectively verbal) History of Present Illness HPI Narrative: 64-year-old male presents from [facility] via EMS for fevers, right ear and facial swelling. upon presentation he does meet sepsis criteria. He is unable to answer any questions but is able to follow simple commands. MD elicited complaint: fever Onset (ago): day(s) (1) Related Data Home Medications Medication Instructions Recorded Confirmed gemfibrozil [Lopid] 600 mg PO BID 12/12/19 12/12/19 hydrocortisone acetate 1 ea Q4-5H PRN 12/12/19 12/12/19 ibuprofen 600 mg PO Q6H PRN 12/12/19 12/12/19 risperidone 3 mg PO BID 12/12/19 12/12/19 sennosides [senna] 8.6 mg PO DAILY PRN 12/12/19 12/12/19 tramadol 100 mg PO BID PRN 12/12/19 12/12/19 Allergies Allergy/AdvReac Type Severity Reaction Status Date / Time No Known Allergies Allergy Verified 12/11/19 21:13 Review of Systems Review of Systems: ROS unable to be obtained due to altered mental status Yes all other systems are reviewed and are negative [facility] Past Medical History Attestation statement: The following information was validated with the patient. Medical History Hyperlipidemia Hypertension Schizophrenia Social History Social History Household Members: Other Housing: Group Home Alcohol intake: current Alcohol type: beer Smoking Status: Current every day smoker Use of substances other than those prescribed or required for medical reasons: Yes Substance Use Type: Marijuana Substance Use Frequency: Socially Last Used Substance: Unknown Advance Directives: No Advance Directives Information Provided: Yes service: No Current occupational status: unemployed Physical Exam Vital Signs: Vital Signs: Last Vital Signs Temp 98.6 F 01/25/20 22:24 Pulse 75 01/25/20 22:24 Resp 20 01/25/20 22:24 BP 97/54 L 01/25/20 22:24 Pulse Ox 94 01/25/20 22:24 Body Mass Index 28.5 Appearance: Alert. Oriented X1. Patient appears to be in no distress however he does meet sepsis criteria as he is febrile, tachycardic Eyes: Pupils equal, round and reactive to light. ENT: Pharynx normal. Neck: Normal inspection. Neck supple. CVS: tachycardic heart rate and rhythm. Pulses equal full all extremities. Respiratory: No respiratory distress. Breath sounds normal. Abdomen: Soft and nontender. Skin: warmth, erythema to the right ear, external auditory canal, andtympanic membrane, swelling travel down to the sternocleidomastoid muscle. Skin warm and dry. Normal skin color. Normal skin turgor. Extremities: No lower extremity edema. Neuro: No motor deficit. No sensory deficit. Course Course Course Narrative: 64-year-old male with altered mental status secondary to TBI presents with fever and cellulitis to the right ear. Will order CT scan of head and neck soft tissues, EKG, troponins, CBC, Chem 7, lactic acid and cultures. Urinalysis. white count 13.4, platelets 157, CT scan shows soft tissue swelling centered at the right ear with extension inferiorly superficial to the right parotid gland without she indication of parotiditis, with inflammatory changes extending to the right mastoid air cells without indication of mastoiditis. we have resuscitated with 3 L of fluid, given ceftriaxone, Tylenol, and Toradol. Discussion with hospitalist regarding plan of care, plan is to admit for sepsis, cellulitis, hospitalist requests treatment with IV Unasyn. Medication ordered. Patient updated about admission for sepsis, while patient did say yes I do not feel that he understands completely as he does have a significant cognitive impairment secondary to traumatic brain injury. Consultations Consultation #1: Weston Doty Time: 21:46 MDM - Fever Differential Diagnosis Differential diagnosis: Likely cellulitis, community acquired pneumonia, viral infection, sepsis and influenza Medical Records Attestation: I reviewed the patient's medical records. Lab Data Attestation: I reviewed the patient's lab results. Result diagrams: 01/25/20 18:55 01/25/20 18:55 Labs: Lab Results 01/25/20 01/25/20 01/25/20 Range/Units 18:55 18:55 18:55 WBC 13.4 H (4.8-10.8) X10*3/uL RBC 4.20 L (4.60-5.80) X10*6/uL Hgb 12.5 L (14.0-18.0) g/dl Hct 37.6 L (42-52) % MCV 89.5 (80-98) fL MCH 29.8 (27.0-33.0) pg MCHC 33.2 (31.0-36.0) g/dl RDW 13.6 (11.0-16.0) % Plt Count 157 L (160-400) X10*3/uL MPV 10.7 (9.4-12.4) fL Immature Gran % (Auto) 0.4 (0.0-0.4) % Neut % (Auto) 80.2 H (45-73) % Lymph % (Auto) 12.4 L (20-40) % [place] % (Auto) 6.6 (2-11) % Eos % (Auto) 0.2 (0-4) % Baso % (Auto) 0.2 (0-2) % Lymph # (Auto) 1.7 (1.2-4.9) X10*3/uL [place] # (Auto) 0.9 (0.1-1.2) X10*3/uL Eos # (Auto) 0.0 (0.0-0.4) X10*3/uL Baso # (Auto) 0.0 (0.0-0.2) X10*3/uL Abs Immat Gran (auto) 0.06 H (0.00-0.03) X10*3/uL Absolute Neuts (auto) 10.8 H (2.0-8.3) X10*3/uL Absolute Nucleated RBC 0.000 (0.0-0.012) X10*3/uL Nucleated RBC % (auto) 0.0 (0.0-0.2) /100WBC PT 15.4 H (10.8-13.0) SEC INR 1.3 H (0.9-1.1) APTT 45.3 H (24.1-38.0) SEC Sodium 136 (135-145) mmol/L Potassium 4.0 (3.3-5.1) mmol/l Chloride 102 (96-108) mmol/L Carbon Dioxide 23 (22-29) mmol/L Anion Gap 15 (12-20) BUN 12 (9-16) mg/dL Creatinine 0.75 (0.5-1.4) mg/dL Estim Creat Clear Calc 96.4 Estimated GFR > 60 Random Glucose 111 (60-115) mg/dL Lactic Acid (0.5-2.0) mmol/L Calcium 9.0 (8.4-10.2) mg/dL Magnesium 2.0 (1.6-2.6) mg/dL Total Bilirubin 0.5 (0.0-1.0) mg/dL Direct Bilirubin 0.2 (0.0-0.5) mg/dL AST 26 (5-37) U/L ALT 24 (0-40) U/L Alkaline Phosphatase 67 (39-117) U/L Troponin I High Sens (<3.5-35.0) ng/L Total Protein 7.6 (6.5-8.0) g/dL Albumin 4.6 (3.5-5.0) g/dL Lipase 31 (8-78) U/L Coronavirus (PCR) (Negative) Influenza Type A (PCR) (Negative) Influenza Type B (PCR) (Negative) RSV RNA Qual (PCR) (Negative) 01/25/20 01/25/20 01/25/20 Range/Units 18:55 18:55 21:02 WBC (4.8-10.8) X10*3/uL RBC (4.60-5.80) X10*6/uL Hgb (14.0-18.0) g/dl Hct (42-52) % MCV (80-98) fL MCH (27.0-33.0) pg MCHC (31.0-36.0) g/dl RDW (11.0-16.0) % Plt Count (160-400) X10*3/uL MPV (9.4-12.4) fL Immature Gran % (Auto) (0.0-0.4) % Neut % (Auto) (45-73) % Lymph % (Auto) (20-40) % [place] % (Auto) (2-11) % Eos % (Auto) (0-4) % Baso % (Auto) (0-2) % Lymph # (Auto) (1.2-4.9) X10*3/uL [place] # (Auto) (0.1-1.2) X10*3/uL Eos # (Auto) (0.0-0.4) X10*3/uL Baso # (Auto) (0.0-0.2) X10*3/uL Abs Immat Gran (auto) (0.00-0.03) X10*3/uL Absolute Neuts (auto) (2.0-8.3) X10*3/uL Absolute Nucleated RBC (0.0-0.012) X10*3/uL Nucleated RBC % (auto) (0.0-0.2) /100WBC PT (10.8-13.0) SEC INR (0.9-1.1) APTT (24.1-38.0) SEC Sodium (135-145) mmol/L Potassium (3.3-5.1) mmol/l Chloride (96-108) mmol/L Carbon Dioxide (22-29) mmol/L Anion Gap (12-20) BUN (9-16) mg/dL Creatinine (0.5-1.4) mg/dL Estim Creat Clear Calc Estimated GFR Random Glucose (60-115) mg/dL Lactic Acid 1.1 (0.5-2.0) mmol/L Calcium (8.4-10.2) mg/dL Magnesium (1.6-2.6) mg/dL Total Bilirubin (0.0-1.0) mg/dL Direct Bilirubin (0.0-0.5) mg/dL AST (5-37) U/L ALT (0-40) U/L Alkaline Phosphatase (39-117) U/L Troponin I High Sens < 3.5 (<3.5-35.0) ng/L Total Protein (6.5-8.0) g/dL Albumin (3.5-5.0) g/dL Lipase (8-78) U/L Coronavirus (PCR) NEGATIVE (Negative) Influenza Type A (PCR) NEGATIVE (Negative) Influenza Type B (PCR) NEGATIVE (Negative) RSV RNA Qual (PCR) NEGATIVE (Negative) Imaging Data CT scan - head: Attestation: I personally reviewed and interpreted this imaging study as follows: Radiologist's impression: EXAMINATION: CT SOFT TISSUE NECK WITHOUT CONTRAST CLINICAL INFORMATION: Right ear swelling. Sepsis. COMPARISON: Head CT from today. TECHNIQUE: Helical imaging was performed in the axial plane with generation of coronal and sagittal reformatted images. This CT examination was performed using dose optimization techniques as appropriate, variously including the following: *Automated exposure control *Adjustment of mA and/or kV according to patient size (this includes techniques or standardized protocols for targeted exams where dose is matched to indication/reason for exam; i.e. extremities or head) *Use of iterative reconstruction technique DLP: 495 mGy-cm FINDINGS: There is asymmetric stranding in the subcutaneous tissues overlying the right parotid gland. Stranding extends superiorly, involving the entirety of the right anterior. Mild stranding extends posterior to the ear as well, overlying the region of the mastoids. There is no fluid collection identified. The parotid gland appears normal with symmetric appearance to the left. The mastoid air cells are well aerated. The middle ear cavity is well aerated. Cerumen within the external auditory canal. No cervical adenopathy is identified. The submandibular glands are normal. No contour abnormality is seen within the oral cavity or pharyngeal mucosal space. The laryngeal structures are normal. The parapharyngeal fat is preserved. No extra mucosal soft tissue mass or fluid collection is seen. No retropharyngeal fluid collection is seen. The thyroid gland is normal. The superior mediastinum is unremarkable. Peripheral opacities are noted at the lung apices. This could represent mild fibrotic change, as it is similar to previous chest CT.. Moderate opacification of the ethmoid air cells. The temporomandibular joints are normal. The patient is edentulous. No acute osseous abnormalities are seen. Degenerative changes are noted in the spine. The imaged portions of the brain parenchyma are unremarkable. CT/CT soft tissue neck wo con IMPRESSION: Soft tissue swelling centered at the right ear, with extension inferiorly superficial to the right parotid gland. There is no fluid collection. The parotid gland is homogenous and symmetric to the left, arguing against parotiditis. Inflammatory changes also extend superficial to the right mastoid air cells, but the mastoid air cells are clear, arguing against mastoiditis. ECG Data ECG #1: Attestation: I personally reviewed and interpreted this ECG as follows: ECG interpretation date: 01/25/20 ECG interpretation time: 19:15 Prior ECG tracings: not available for review Interpretation: ventricular rate 99 beats per minute, p.r. interval 146, QRS 98, QT 328, QTC 420 normal sinus rhythm, incomplete right bundle branch block, no ST elevation or depression no indication of ischemia at this time, prior EKGs unavailable secondary to system failure Critical Care Time Critical Care Time Critical Care Time: Yes Total Critical Care Time: 60 Attestation: I have personally provided critical care time exclusive of time spent on separately billable procedures. Time includes review of laboratory data, rad iology results, discussion with consultants, and monitoring for potential decompensation. Interventions were performed as documented. Discharge Plan Discharge Clinical Impression: Cellulitis Qualifiers: Site of cellulitis: face Qualified Code(s): L03.211 - Cellulitis of face Sepsis Qualifiers: Sepsis type: sepsis due to unspecified organism Sepsis acute organ dysfunction status: without acute organ dysfunction Qualified Code(s): A41.9 - Sepsis, unspecified organism Patient Disposition: Admitted As Inpatient
[2020-01-25] MEDS: 0.9 % Sodium Chloride 1,000 ML 999 ML IVCONT ×3 (19:14→19:25)
[2020-01-25 19:15] LABS: INTERNATIONAL NORM RATIO 1.3 (0.9-1.1); Prothrombin Time 15.4 SEC (10.8-13.0)
[2020-01-25 19:18] LABS: Partial Thromboplastin Time 45.3 SEC (24.1-38.0)
[2020-01-25] MEDS: Acetaminophen 325 MG TABLET 650 MG PO (19:22)
[2020-01-25] MEDS: cefTRIAXone sodium 1 GM in 0.9 % Sodium Chloride 50 ML IV (19:23)
[2020-01-25] MEDS: ondansetron HCL 4 MG/2 ML VIAL IVPUSH (19:23)
[2020-01-25] MEDS: Ketorolac Tromethamine 30 MG/ML VIAL IV (19:23)
--- NOTE | 2020-01-25 19:29 | PC.NURSE ---
pt is able to swallow with no difficulty. no redness noted to oral. pt is able to talk in a low tone voice
[2020-01-25 19:30] LABS: Lactic Acid 1.1 mmol/L (0.5-2.0)
[2020-01-25 19:32] VITALS: BP 117/55; PULSE 94; RESP 16; TEMP 37.7; O2SAT 95
[2020-01-25 19:34] LABS: Alanine Aminotransferase 24 U/L (0-40); Albumin Level 4.6 g/dL (3.5-5.0); Alkaline Phosphatase 67 U/L (39-117); Anion Gap 15 (12-20); Aspartate Amino Transferase 26 U/L (5-37); Bilirubin Direct 0.2 mg/dL (0.0-0.5); Bilirubin Total 0.5 mg/dL (0.0-1.0); Blood Urea Nitrogen 12 mg/dL (9-16); Carbon Dioxide 23 mmol/L (22-29); Chloride 102 mmol/L (96-108); Creatinine Clr Calc Pharmacy 96.4; Estimated Glomerular Filt Rate > 60; Glucose Random 111 mg/dL (60-115); Lipase 31 U/L (8-78); Sodium 136 mmol/L (135-145); Total Protein 7.6 g/dL (6.5-8.0)
[2020-01-25 19:40] LABS: Troponin-I High Sensitivity < 3.5 ng/L (<3.5-35.0)
[2020-01-25 20:00] VITALS: BP 114/57; PULSE 88; RESP 20
[2020-01-25 21:13] VITALS: BP 93/56; PULSE 78; RESP 20; O2SAT 95
[2020-01-25 21:54] LABS: Influenza A PCR NEGATIVE (Negative); Influenza B PCR NEGATIVE (Negative); Resp Syncy Virus RNA Qual PCR NEGATIVE (Negative); SARS COV2 PCR INHOUSE NEGATIVE (Negative)
[2020-01-25 22:24] VITALS: BP 97/54; PULSE 75; RESP 20; TEMP 37; O2SAT 94
[2020-01-26] VITALS (9 sets, daily range): BP systolic 103–132; BP diastolic 50–68; PULSE 69–78; RESP 16–20; TEMP 36.6–37.1; O2SAT 93–99
[2020-01-26 00:17] LABS: Glucose Urine UA NEG (NEG); Leukocyte Esterase Urine NEG (NEG); Nitrite Urine NEG (NEG); Urine Blood NEG (NEG); Urine Ketones NEG (NEG); Urine Protein NEG (NEG-TRACE)
[2020-01-26 00:18] LABS: Appearance Urine CLEAR; Color Urine YELLOW; UACC Culture Trigger NO
[2020-01-26] MEDS: Ampicillin Sodium/Sulbactam Na 1.5 GM in 0.9 % Sodium Chloride 100 ML IV ×4 (00:29→20:21)
--- NOTE | 2020-01-26 00:31 | PC.NURSE ---
ampicillin not available in pyxis.
--- NOTE | 2020-01-26 00:37 | PC.NURSE ---
redness to face resolving and almost gone. pt has no s/s of resp distress, occassional cough non productive. pt voiding in urinal.
--- NOTE | 2020-01-26 01:39 | PM.IMHP ---
History of Present Illness Date of Service: 01/26/20 Chief Complaint: Facial erythema 64 y/o male with PMHX of DM and schizophrenia who presented from [facility] due to evidence of right facial erythema and fever. Patient at present is AAOx 1 (name) and is not able to provide with any significant hx. Per NH patient was noted to have erythema and swelling of the right side of the face today with associated episodes of on and off fever. No documented hx of chest pain, SOB, nausea, vomiting, diarrhea, cough or any sick contacts. On presentation patient was noted to fullfill sepsis criteria given tachycardiac, tachypnea and fever of 102.8. Source of infection identified as the skin (right facial cellulitis). One dose of Rocephin followed by one dose of Unasyn given per ED. Decision for admission given. Patient seen and examined at the bedside, laying down in bed in no acute distress. ROS as above otherwise negative. Physical exam positive for right facial erythema extending from right ear lobe to the right maxillary area. PMHx: Diabetes, schizophrenia PSx: Unknown Toxic habits: No documented hx of alcohol abuse, smoking or IVDA Social hx: Comes from [facility], oriented to self own at baseline Review of Systems Constitutional: Constitutional: Reports other (fever) [facility] Medical History (Updated 01/26/20 @ 02:18 by Shaniqua Doty MD) Hyperlipidemia Hypertension Schizophrenia Functional capacity: independent ambulation Social History Household Members: Other Housing: Long Term Alcohol intake: current Alcohol type: beer Smoking Status: Current every day smoker Use of substances other than those prescribed or required for medical reasons: Yes Substance Use Type: Marijuana Substance Use Frequency: Socially Last Used Substance: Unknown Advance Directives: No Advance Directives Information Provided: Yes service: No Current occupational status: unemployed Meds Allergies Allergy/AdvReac Type Severity Reaction Status Date / Time No Known Allergies Allergy Verified 12/11/19 21:13 Home Medications Medication Instructions Recorded Confirmed Type gemfibrozil [Lopid] 600 mg PO BID 12/12/19 12/12/19 History hydrocortisone acetate 1 ea Q4-5H PRN 12/12/19 12/12/19 History ibuprofen 600 mg PO Q6H PRN 12/12/19 12/12/19 History risperidone 3 mg PO BID 12/12/19 12/12/19 History sennosides [senna] 8.6 mg PO DAILY PRN 12/12/19 12/12/19 History tramadol 100 mg PO BID PRN 12/12/19 12/12/19 History Physical Exam Vital Signs and Narrative: Vital Signs: Last Vital Signs Temp 98.8 F 01/26/20 00:00 Pulse 74 01/26/20 00:00 Resp 18 01/26/20 00:00 BP 105/55 L 01/26/20 00:00 Pulse Ox 93 01/26/20 00:00 Body Mass Index 28.5 Const: General: cooperative, comfortable and no acute distress Orientation/consciousness: oriented to person HENMT: Head: Yes other (erythema of right earlobe extending to right maxillary bone ) Eyes: General: appearance normal, both eyes and all related structures Neck: Yes normal visual inspection Chest: Chest palpation & inspection: normal inspection of the chest Resp: Effort & Inspection: normal respiratory effort Cardio: Jugular venous distension: no JVD Rate: regular rate Rhythm: regular rhythm Heart sounds: S1 normal heart sound present and S2 normal heart sound present GI: Inspection: Yes normal to inspection Skin: General skin exam: other (as described above ) Neuro: General: oriented to person Gait exam (Neuro): Normal gait present Extrem: General: Yes normal to inspection Results Labs CBC and Chem 7: 01/25/20 18:55 01/25/20 18:55 Labs: Laboratory Results - last 24 hr 01/25/20 01/25/20 01/25/20 18:55 18:55 18:55 MCV 89.5 MCH 29.8 MCHC 33.2 RDW 13.6 Plt Count 157 L MPV 10.7 Immature Gran % (Auto) 0.4 Neut % (Auto) 80.2 H Lymph % (Auto) 12.4 L [place] % (Auto) 6.6 Eos % (Auto) 0.2 Baso % (Auto) 0.2 Lymph # (Auto) 1.7 [place] # (Auto) 0.9 Eos # (Auto) 0.0 Baso # (Auto) 0.0 Abs Immat Gran (auto) 0.06 H Absolute Neuts (auto) 10.8 H Absolute Nucleated RBC 0.000 Nucleated RBC % (auto) 0.0 PT 15.4 H INR 1.3 H APTT 45.3 H Anion Gap 15 Estim Creat Clear Calc 96.4 Estimated GFR > 60 Random Glucose 111 Lactic Acid Calcium 9.0 Magnesium 2.0 Total Bilirubin 0.5 Direct Bilirubin 0.2 AST 26 ALT 24 Alkaline Phosphatase 67 Troponin I High Sens Total Protein 7.6 Albumin 4.6 Lipase 31 Urine Color Urine Appearance Urine pH Ur Specific [place] Urine Protein Urine Glucose (UA) Urine Ketones Urine Blood Urine Nitrite Ur Leukocyte Esterase Coronavirus (PCR) Influenza Type A (PCR) Influenza Type B (PCR) RSV RNA Qual (PCR) 01/25/20 01/25/20 01/25/20 18:55 18:55 21:02 MCV MCH MCHC RDW Plt Count MPV Immature Gran % (Auto) Neut % (Auto) Lymph % (Auto) [place] % (Auto) Eos % (Auto) Baso % (Auto) Lymph # (Auto) [place] # (Auto) Eos # (Auto) Baso # (Auto) Abs Immat Gran (auto) Absolute Neuts (auto) Absolute Nucleated RBC Nucleated RBC % (auto) PT INR APTT Anion Gap Estim Creat Clear Calc Estimated GFR Random Glucose Lactic Acid 1.1 Calcium Magnesium Total Bilirubin Direct Bilirubin AST ALT Alkaline Phosphatase Troponin I High Sens < 3.5 Total Protein Albumin Lipase Urine Color Urine Appearance Urine pH Ur Specific [place] Urine Protein Urine Glucose (UA) Urine Ketones Urine Blood Urine Nitrite Ur Leukocyte Esterase Coronavirus (PCR) NEGATIVE Influenza Type A (PCR) NEGATIVE Influenza Type B (PCR) NEGATIVE RSV RNA Qual (PCR) NEGATIVE 01/26/20 00:09 MCV MCH MCHC RDW Plt Count MPV Immature Gran % (Auto) Neut % (Auto) Lymph % (Auto) [place] % (Auto) Eos % (Auto) Baso % (Auto) Lymph # (Auto) [place] # (Auto) Eos # (Auto) Baso # (Auto) Abs Immat Gran (auto) Absolute Neuts (auto) Absolute Nucleated RBC Nucleated RBC % (auto) PT INR APTT Anion Gap Estim Creat Clear Calc Estimated GFR Random Glucose Lactic Acid Calcium Magnesium Total Bilirubin Direct Bilirubin AST ALT Alkaline Phosphatase Troponin I High Sens Total Protein Albumin Lipase Urine Color YELLOW Urine Appearance CLEAR Urine pH 6.0 Ur Specific [place] 1.010 Urine Protein NEG Urine Glucose (UA) NEG Urine Ketones NEG Urine Blood NEG Urine Nitrite NEG Ur Leukocyte Esterase NEG Coronavirus (PCR) Influenza Type A (PCR) Influenza Type B (PCR) RSV RNA Qual (PCR) Imaging Radiologist's Impressions: Impressions Chest X-Ray 01/25/20 18:51 IMPRESSION: Unremarkable examination. Head CT 01/25/20 18:55 IMPRESSION: No acute intracranial pathology. Soft Tissue Neck CT 01/25/20 18:55 IMPRESSION: Soft tissue swelling centered at the right ear, with extension inferiorly superficial to the right parotid gland. There is no fluid collection. The parotid gland is homogenous and symmetric to the left, arguing against parotiditis. Inflammatory changes also extend superficial to the right mastoid air cells, but the mastoid air cells are clear, arguing against mastoiditis. Assessment and Plan (1) Sepsis: Qualifiers: Sepsis acute organ dysfunction status: without acute organ dysfunction Sepsis type: sepsis due to unspecified organism Qualified Code(s): A41.9 - Sepsis, unspecified organism Status: Acute S/p one dose of Rocephin and Unasyn per ED Continue with Unasyn for gram neg and anaerobic coverage Follow up Bcx and Ucx collected per ED Imaging reviewed Infectious disease consult in the am (2) Cellulitis: Qualifiers: Site of cellulitis: face Qualified Code(s): L03.211 - Cellulitis of face Status: Acute plan as above (3) Diabetes: Status: Acute Insulin regimen as ordered POCT glucose AC HS (4) Schizophrenia: Status: Acute continue with home meds as ordered
[2020-01-26 08:05] LABS: MANUAL DIFF FLAG NO
[2020-01-26 08:06] LABS: Basophils Percent Auto 0.2 % (0-2); Eosinophils Absolute Auto 0.1 X10*3/uL (0.0-0.4); Eosinophils Percent Auto 1.6 % (0-4); Hematocrit 34.2 % (42-52); Hemoglobin 11.2 g/dl (14.0-18.0); Imm Gran Abs Auto 0.02 X10*3/uL (0.00-0.03); Imm Gran Pct Auto 0.2 % (0.0-0.4); Lymphocytes Absolute Auto 1.7 X10*3/uL (1.2-4.9); Lymphocytes Percent Auto 20.3 % (20-40); Mean Corpuscular HGB Conc 32.7 g/dl (31.0-36.0); Mean Corpuscular Hemoglobin 29.5 pg (27.0-33.0); Mean Platelet Volume 10.1 fL (9.4-12.4); Monocytes Absolute Auto 0.8 X10*3/uL (0.1-1.2); Monocytes Percent Auto 9.5 % (2-11); Neutrophils Absolute Auto 5.6 X10*3/uL (2.0-8.3); Neutrophils Percent Auto 68.2 % (45-73); Platelet Count 129 X10*3/uL (160-400); Red Cell Distribution Width 13.9 % (11.0-16.0); White Blood Count 8.2 X10*3/uL (4.8-10.8)
--- NOTE | 2020-01-26 08:21 | MHC.CM.PN ---
Addendum entered by Jessica Correia 01/26/20 08:47: Pt does not have medicare listed, VM left with Attandra Upton to confirm pt only [facility] [place] [facility] Original Note: Pt is a LTC resident of [facility] [place]. Pts legal guardian is Francis Upotn ([phone]). Message left for guardian informing him of admission and medicare rights.
[2020-01-26 08:27] LABS: Glucose, Whole Blood 99 mg/dL (60-115)
[2020-01-26 08:46] LABS: Anion Gap 11 (12-20); Blood Urea Nitrogen 9 mg/dL (9-16); Calcium 8.1 mg/dL (8.4-10.2); Carbon Dioxide 25 mmol/L (22-29); Chloride 109 mmol/L (96-108); Creatinine Clr Calc Pharmacy 107.9; Estimated Glomerular Filt Rate > 60; Glucose Random 97 mg/dL (60-115); Potassium 3.6 mmol/l (3.3-5.1); Sodium 141 mmol/L (135-145)
[2020-01-26] MEDS: 0.9 % Sodium Chloride Flush 3 ML SYRINGE IVFLUSH (09:21)
[2020-01-26] MEDS: Doxycycline Hyclate 100 MG in 0.9 % Sodium Chloride 250 ML 166.67 MG IV ×2 (11:42→22:55)
--- NOTE | 2020-01-26 13:48 | P.PNIM_ITS ---
Subjective Subjective Date of Service: 01/26/20 Interval History: the patient was seen and evaluated this morning Laying in bed, feels comfortable Denies any fever, chills or shortness of breath No reported other overnight events. Systemic review: No fever, chills or weakness No chest pain, palpitation No shortness of breath or coughing No abdominal pain, nausea or vomiting No urinary symptoms facial swelling on the right side with swollen right here, no drainage reported, Physical Exam Vital Signs: Vital Signs: Last Vital Signs Temp 97.8 F 01/26/20 08:22 Pulse 78 01/26/20 08:22 Resp 18 01/26/20 08:22 BP 132/66 01/26/20 08:22 Pulse Ox 99 01/26/20 08:22 Body Mass Index 28.5 Constitutional : Alert, oriented to self, not in distress Neck : Normal inspection, Supple Cardiovascular : RRR, S1 S2, no lower extremity edema Respiratory : Good bilateral air entry, no crackles, wheezes or rhonchi Gastrointestinal: soft, lax, Normal bowel sounds, Non tender Skin : Warm/Dry, No rash Neurological : Alert & oriented to self, No focal deficit Objective Data Current Medications Generic Name Dose Route Start Last Admin Trade Name Freq PRN Reason Stop Dose Admin Heparin Sodium (Porcine) 5,000 unit 01/26/20 06:00 01/26/20 06:37 Heparin Sodium,Porcine 5,000 Unit/Ml Vial SUBCUT Not Given Q8H [facility] Ampicillin Sodium/Sulbactam 100 mls @ 200 mls/hr 01/26/20 07:00 01/26/20 09:54 Sodium 1.5 gm/ Sodium Chloride IV Infused Q6H [facility] Infusion Doxycycline Hyclate 100 mg/ 250 mls @ 166.67 mls/hr 01/26/20 11:00 01/26/20 11:42 Sodium Chloride IV 166.67 mls/hr Q12H [facility] Administration Insulin Human Lispro 0 unit 01/26/20 07:30 01/26/20 12:24 Insulin Lispro 100 Unit/Ml 3 Ml Vial SUBCUT 01/27/20 03:16 Not Given QIDACHS [facility] Protocol Sodium Chloride 3 ml 01/26/20 08:00 01/26/20 09:21 0.9 % Sodium Chloride Flush 3 Ml Syringe IVFLUSH 3 ml QSHIFT [facility] Administration Labs CBC & Chem 7: 01/26/20 07:50 01/26/20 07:49
--- NOTE | 2020-01-26 14:24 | PM.EVENT ---
Event Note Date of Service: 01/26/20 Event Note: patient was seen and evaluated this morning Feels comfortable, complaining of mild pain in his face patient not septic Continue treatment with Unasyn and doxycycline Pending ID evaluation
[2020-01-26 17:06] LABS: Glucose, Whole Blood 118 mg/dL (60-115)
[2020-01-26 20:41] LABS: Glucose, Whole Blood 129 mg/dL (60-115)
[2020-01-26] MEDS: Heparin Sodium,Porcine 5,000 UNIT/ML VIAL 5000 UNIT SUBCUT (21:44)
[2020-01-27] VITALS: BP 112/55; PULSE 75; RESP 18; TEMP 36.6; O2SAT 99
[2020-01-27] MEDS: Ampicillin Sodium/Sulbactam Na 1.5 GM in 0.9 % Sodium Chloride 100 ML IV ×2 (00:55→09:08)
[2020-01-27] MEDS: 0.9 % Sodium Chloride Flush 3 ML SYRINGE IVFLUSH ×3 (00:55→20:30)
[2020-01-27 07:19] LABS: Glucose, Whole Blood 113 mg/dL (60-115)
[2020-01-27 07:58] VITALS: BP 121/56; PULSE 70; RESP 18; TEMP 37; O2SAT 100
[2020-01-27 11:26] LABS: Glucose, Whole Blood 113 mg/dL (60-115)
[2020-01-27] MEDS: Acetaminophen 325 MG TABLET 650 MG PO (13:45)
[2020-01-27] MEDS: Piperacillin Sodium/Tazobactam 3.375 GM in 0.9 % Sodium Chloride 50 ML IV (13:48)
--- NOTE | 2020-01-27 13:58 | MHC.CM.PN ---
Male 64 dx cellulitis /face. The Pt resides @ [facility]. DP to return to [facility] via BLS.
[2020-01-27 15:36] VITALS: BP 111/58; PULSE 67; RESP 18; TEMP 36.3; O2SAT 99
--- NOTE | 2020-01-27 15:52 | HO.PM.IMPN ---
Subjective Subjective Date of Service: 01/27/20 Interval History: patient seen and examined at bedside patient was reporting Ear pain Constitutional Constitutional: Reports weakness Cardiovascular Cardiovascular: Reports no additional cardiovascular complaints Respiratory Respiratory: Denies cough Gastrointestinal Gastrointestinal: Denies vomiting Neurologic Neurologic: Reports weakness Physical Exam Vital Signs: Vital Signs: Last Vital Signs Temp 97.4 F 01/27/20 15:36 Pulse 67 01/27/20 15:36 Resp 18 01/27/20 15:36 BP 111/58 L 01/27/20 15:36 Pulse Ox 99 01/27/20 15:36 Body Mass Index 28.5 Const: General: cooperative, comfortable and no acute distress Orientation/consciousness: oriented to person HENMT: Head: Yes other (erythema of right earlobe extending to right maxillary bone ) Eyes: General: appearance normal, both eyes and all related structures Neck: Neck: Yes normal visual inspection Chest: Chest palpation & inspection: normal inspection of the chest Resp: Effort & Inspection: normal respiratory effort Cardio: Jugular venous distension: no JVD Rate: regular rate Rhythm: regular rhythm Heart sounds: S1 normal heart sound present and S2 normal heart sound present GI: Inspection: Yes normal to inspection Skin: General skin exam: other (as described above ) Neuro: General: oriented to person Gait exam (Neuro): Normal gait present Extrem: General: Yes normal to inspection Objective Data Current Medications Generic Name Dose Route Start Last Admin Trade Name Freq PRN Reason Stop Dose Admin Acetaminophen 650 mg 01/27/20 11:19 01/27/20 13:45 Acetaminophen 325 Mg Tablet PO 650 mg Q6H PRN Administration Pain and Fever Heparin Sodium (Porcine) 5,000 unit 01/26/20 06:00 01/27/20 13:52 Heparin Sodium,Porcine 5,000 Unit/Ml Vial SUBCUT Not Given Q8H TJ Piperacillin Sod/Tazobactam 50 mls @ 100 mls/hr 01/27/20 12:00 01/27/20 14:29 Sod 3.375 gm/ Sodium Chloride IV Infused Q6H TJ Infusion Vancomycin HCl 750 mg/ 275 mls @ 183.333 mls/hr 01/27/20 13:00 01/27/20 14:23 Vancomycin HCl 500 mg/ Sodium IV 183.33 mls/hr Chloride Q12H TJ Administration Sodium Chloride 3 ml 01/26/20 08:00 01/27/20 09:08 0.9 % Sodium Chloride Flush 3 Ml Syringe IVFLUSH 3 ml QSHIFT TJ Administration Labs CBC & Chem 7: 01/26/20 07:50 01/26/20 07:49 Microbiology Microbiology Results: Microbiology 01/25/20 18:56 Blood - Venous Blood Culture - Preliminary Coagulase-neg Staphyloccocus 01/25/20 21:02 Blood - Venous Blood Culture - Preliminary No growth after 24 hours. Assessment and Plan (1) Sepsis: Status: Acute (2) Cellulitis: Status: Acute (3) Diabetes: Status: Acute (4) Schizophrenia: Status: Acute Assessment and Plan: Right-sided facial cellulitis involving Eararea CT of the face and neck shows infection involving the ER but no abscess by 1 set of blood culture growing Gram-positive cocci will switch antibiotic to Vanco and Zosyn follow-up cultures diabetes mellitus Insulin regimen as ordered POCT glucose AC HS history of schizophrenia DVT prophylaxis
--- NOTE | 2020-01-27 16:48 | P.CNID_ITS ---
History of Present Illness Data of Consult Service Date: 01/27/20 Requesting physician: Pablo Singh Primary Care Provider: Unknown Physician HPI Reason for consult: facial redness He presents with two days of redness face He has right sided ear and face redness He has no fever or chills Review of Systems Constitutional: Constitutional: Reports weakness Neurologic: Reports weakness PMFSH Past Medical History Medical History Hyperlipidemia Hypertension Schizophrenia Functional capacity: independent ambulation Social History Social History Household Members: Other Housing: [facility] Alcohol intake: current Alcohol type: beer Smoking Status: Current every day smoker Tobacco Type: Cigarette Use of substances other than those prescribed or required for medical reasons: No Substance Use Type: Marijuana Substance Use Frequency: Socially Last Used Substance: Unknown Currently Displaying Signs/Symptoms of Drug Intoxication Withdrawal: No Advance Directives: No Advance Directives Information Provided: Yes Do you have thoughts of harming others: None Do you have a plan to hurt others: No Plan service: No Current occupational status: unemployed Meds Allergies Allergy/AdvReac Type Severity Reaction Status Date / Time No Known Allergies Allergy Verified 12/11/19 21:13 Home Medications Medication Instructions Recorded Confirmed Type Unobtainable 01/26/20 01/26/20 History Physical Exam Vital Signs: Vital Signs: Last Vital Signs Temp 97.4 F 01/27/20 15:36 Pulse 67 01/27/20 15:36 Resp 18 01/27/20 15:36 BP 111/58 L 01/27/20 15:36 Pulse Ox 99 01/27/20 15:36 Body Mass Index 28.5 Const: General: cooperative HENMT: Other: less redness face Throat: Yes posterior oropharynx normal Eyes: General: appearance normal, both eyes and all related structures Resp: Effort & Inspection: normal respiratory effort Cardio: Rate: regular rate Rhythm: regular rhythm GI: Inspection: Yes normal to inspection Extrem: General: Yes normal to inspection Assessment and Plan (1) Cellulitis: Qualifiers: Site of cellulitis: face Qualified Code(s): L03.211 - Cellulitis of face Problem details: facial cellulitis Improving Probably related to diabetes Blood culture contaminant Possible staph,strep Status: Acute Would stop IV antibiotics Po Doxycycline for a week (2) Diabetes: Status: Acute Results Labs CBC & Chem 7: 01/26/20 07:50 01/26/20 07:49 Microbiology Microbiology Results: Microbiology 01/25/20 18:56 Blood - Venous Blood Culture - Preliminary Coagulase-neg Staphyloccocus 01/25/20 21:02 Blood - Venous Blood Culture - Preliminary No growth after 24 hours.
[2020-01-27 17:03] LABS: Glucose, Whole Blood 144 mg/dL (60-115)
[2020-01-27 21:14] LABS: Glucose, Whole Blood 107 mg/dL (60-115)
[2020-01-27 23:41] VITALS: BP 124/58; PULSE 62; RESP 18; TEMP 36.7; O2SAT 97
[2020-01-28 07:34] VITALS: BP 107/53; PULSE 56; RESP 18; TEMP 36.6; O2SAT 97
[2020-01-28 07:50] LABS: Glucose, Whole Blood 114 mg/dL (60-115)
[2020-01-28] MEDS: 0.9 % Sodium Chloride Flush 3 ML SYRINGE IVFLUSH (08:34)
[2020-01-28 11:17] VITALS: BP 118/62; PULSE 52; RESP 18; TEMP 36; O2SAT 98
--- NOTE | 2020-01-28 11:43 | MHC.CM.PN ---
Addendum entered by Maria Luisa Loyola 01/28/20 11:47: No IMM Pt is [place] [employer]. Original Note: IMM 01/28/2020 VERBAL DELIVERY TO [facility]EN[facility]. He is in agreement to DC today. DP return to [facility] via BLS at 14:30 today.
--- NOTE | 2020-01-28 12:18 | P.DS_ITS ---
DS: Providers Provider Date of admission: 01/26/20 03:18 Primary care physician: Unknown Physician Consults: 01/26/20 05:51 Consult to Infectious Diseases Routine Consulting Provider: Edilia Coronado Reason for consultation: sepsis Has provider been notified: No DS: Diagnosis Discharge Diagnosis (1) Cellulitis: Status: Acute (2) Diabetes: Status: Acute DS: Medications Discharge Medications Home Medications: Home Medications Medication Instructions Recorded Confirmed Unobtainable 01/26/20 01/26/20 DS: Summary Hospital Course Hospital Course: HPI from admission 64 y/o male with PMHX of DM and schizophrenia who presented from [facility] due to evidence of right facial erythema and fever. Patient at present is AAOx 1 (name) and is not able to provide with any significant hx. Per NH patient was noted to have erythema and swelling of the right side of the face today with associated episodes of on and off fever. No documented hx of chest pain, SOB, nausea, vomiting, diarrhea, cough or any sick contacts. On presentation patient was noted to fullfill sepsis criteria given tachycardiac, tachypnea and fever of 102.8. Source of infection identified as the skin (right facial cellulitis). One dose of Rocephin followed by one dose of Unasyn given per ED. Decision for admission given. Hospital course 64-year-old male from [facility] admitted with sepsis likely secondary to cellulitis of right-side of face and right ear , CT of the face shows soft tissue swelling but no collection, patient was started on IV antibiotics broad-spectrum, 1/2 set of blood culture grew Staph epidermidis likely contamination, sepsis resolved, patient was seen by ID recommended p.o. doxycycline, patient was stable discharged back to facility on p.o. doxycycline and Augmentin Time Spent with Patient Time attestation: Total time spent providing and/or coordinating discharge services: Physical Exam Vital Signs: Vital Signs: Last Vital Signs Temp 96.8 F 01/28/20 11:17 Pulse 52 01/28/20 11:17 Resp 18 01/28/20 11:17 BP 118/62 01/28/20 11:17 Pulse Ox 98 01/28/20 11:17 Body Mass Index 28.5 Const: General: cooperative, comfortable and no acute distress Orientation/consciousness: oriented to person HENMT: Head: Yes other (erythema of right earlobe extending to right maxillary bone ) Eyes: General: appearance normal, both eyes and all related structures Neck: Neck: Yes normal visual inspection Chest: Chest palpation & inspection: normal inspection of the chest Resp: Effort & Inspection: normal respiratory effort Cardio: Jugular venous distension: no JVD Rate: regular rate Rhythm: regular rhythm Heart sounds: S1 normal heart sound present and S2 normal heart sound present GI: Inspection: Yes normal to inspection Skin: General skin exam: other (as described above ) Neuro: General: oriented to person Gait exam (Neuro): Normal gait present Extrem: General: Yes normal to inspection DS: Data Data Completed and Pending Labs on day of discharge: 01/25/20 18:51 ECG 12 lead EKG Stat EKG Documentation DIRECTED XR chest 1V Stat UA CC w/rflx Micro + Cult Stat Acetaminophen [Tylenol] 650 mg PO ONCE ONE Ketorolac Tromethamine [Toradol] 30 mg IV ONCE ONE ondansetron HCL [Zofran] 4 mg IVPUSH ONCE ONE 01/25/20 18:55 CT head/brain wo con Stat CT soft tissue neck wo con Stat Basic Metabolic Panel Stat Complete Blood Count Auto Diff Stat Lactic Acid Stat Lipase Stat Liver Panel Stat Magnesium Stat Partial Thromboplastin Time Stat Prothrombin Time INR Stat Troponin-I High Sensitivity Stat 01/25/20 18:57 cefTRIAXone sodium [Rocephin] 1 gm 0.9 % Sodium Chloride [Ns] 50 ml IV ONCE 01/25/20 19:00 0.9 % Sodium Chloride [Ns] 1,000 ml IVCONT 999 mls/hr 0.9 % Sodium Chloride [Ns] 1,000 ml IVCONT 999 mls/hr 0.9 % Sodium Chloride [Ns] 1,000 ml IVCONT 999 mls/hr 01/25/20 19:21 cefTRIAXone sodium [Rocephin] 1 gm .ROUTE .STK-MED ONE 01/25/20 21:02 SARS-CoV2/FLU/RSV Stat 01/25/20 21:57 Ampicillin Sodium/Sulbactam Na [Unasyn] 1.5 gm 0.9 % Sodium Chloride [Ns] 100 ml IV ONCE 01/26/20 00:11 Ampicillin Sodium/Sulbactam Na [Unasyn] 1.5 gm .ROUTE .STK-MED ONE 01/26/20 03:15 Transfer Order Routine 01/26/20 07:00 Ampicillin Sodium/Sulbactam Na [Unasyn] 1.5 gm 0.9 % Sodium Chloride [Ns] 100 ml IV Q6H 01/26/20 07:30 Insulin Lispro [Humalog] See Protocol SUBCUT QIDACHS 01/26/20 07:49 Basic Metabolic Panel Routine 01/26/20 07:50 Complete Blood Count Auto Diff Routine 01/26/20 08:24 Glucose, Whole Blood Routine 01/26/20 09:03 Ampicillin Sodium/Sulbactam Na [Unasyn] 1.5 gm .ROUTE .STK-MED ONE 01/26/20 11:00 Doxycycline Hyclate [Vibramycin] 100 mg 0.9 % Sodium Chloride [Ns] 250 ml IV Q12H 01/26/20 11:30 Doxycycline Hyclate [Vibramycin] 100 mg IV .STK-MED ONE 01/26/20 11:36 Doxycycline Hyclate [Vibramycin] 100 mg IV .[facility] ONE 01/26/20 12:21 Glucose, Whole Blood Routine 01/26/20 13:34 Ampicillin Sodium/Sulbactam Na [Unasyn] 1.5 gm .ROUTE .[facility] 01/26/20 18:04 Ampicillin Sodium/Sulbactam Na [Unasyn] 1.5 gm .ROUTE .[facility] 01/26/20 20:18 Ampicillin Sodium/Sulbactam Na [Unasyn] 1.5 gm .ROUTE .[facility] ONE 01/26/20 20:26 Glucose, Whole Blood Routine 01/26/20 22:51 Doxycycline Hyclate [Vibramycin] 100 mg IV .[facility] ONE 01/27/20 00:48 Ampicillin Sodium/Sulbactam Na [Unasyn] 1.5 gm .ROUTE .[facility] 01/27/20 07:11 Glucose, Whole Blood Routine 01/27/20 07:52 Ampicillin Sodium/Sulbactam Na [Unasyn] 1.5 gm .ROUTE .[facility] 01/27/20 11:19 Glucose, Whole Blood Routine 01/27/20 11:30 vancomycin HCL 1,000 mg 0.9 % Sodium Chloride [Ns] 250 ml IV Q12H 01/27/20 12:00 Piperacillin Sodium/Tazobactam [Zosyn] 3.375 gm 0.9 % Sodium Chloride [Ns] 50 ml IV Q6H 01/27/20 13:00 vancomycin HCL 750 mg vancomycin HCL 500 mg 0.9 % Sodium Chloride [Ns] 250 ml IV Q12H 01/27/20 13:40 Piperacillin Sodium/Tazobactam [Zosyn] 3.375 gm IV .STK-MED ONE 01/27/20 16:56 Glucose, Whole Blood Routine 01/27/20 20:50 Glucose, Whole Blood Routine 01/28/20 07:39 Glucose, Whole Blood Routine Laboratory Last Values WBC 8.2 X10*3/uL (4.8-10.8) 01/26/20 07:50 RBC 3.80 X10*6/uL (4.60-5.80) L 01/26/20 07:50 Hgb 11.2 g/dl (14.0-18.0) L 01/26/20 07:50 Hct 34.2 % (42-52) L 01/26/20 07:50 MCV 90.0 fL (80-98) 01/26/20 07:50 MCH 29.5 pg (27.0-33.0) 01/26/20 07:50 MCHC 32.7 g/dl (31.0-36.0) 01/26/20 07:50 RDW 13.9 % (11.0-16.0) 01/26/20 07:50 Plt Count 129 X10*3/uL (160-400) L 01/26/20 07:50 MPV 10.1 fL (9.4-12.4) 01/26/20 07:50 Immature Gran % (Auto) 0.2 % (0.0-0.4) 01/26/20 07:50 Neut % (Auto) 68.2 % (45-73) 01/26/20 07:50 Lymph % (Auto) 20.3 % (20-40) 01/26/20 07:50 [place] % (Auto) 9.5 % (2-11) 01/26/20 07:50 Eos % (Auto) 1.6 % (0-4) 01/26/20 07:50 Baso % (Auto) 0.2 % (0-2) 01/26/20 07:50 Lymph # (Auto) 1.7 X10*3/uL (1.2-4.9) 01/26/20 07:50 [place] # (Auto) 0.8 X10*3/uL (0.1-1.2) 01/26/20 07:50 Eos # (Auto) 0.1 X10*3/uL (0.0-0.4) 01/26/20 07:50 Baso # (Auto) 0.0 X10*3/uL (0.0-0.2) 01/26/20 07:50 Abs Immat Gran (auto) 0.02 X10*3/uL (0.00-0.03) 01/26/20 07:50 Absolute Neuts (auto) 5.6 X10*3/uL (2.0-8.3) 01/26/20 07:50 Absolute Nucleated RBC 0.000 X10*3/uL (0.0-0.012) 01/26/20 07:50 Nucleated RBC % (auto) 0.0 /100WBC (0.0-0.2) 01/26/20 07:50 PT 15.4 SEC (10.8-13.0) H 01/25/20 18:55 INR 1.3 (0.9-1.1) H 01/25/20 18:55 APTT 45.3 SEC (24.1-38.0) H 01/25/20 18:55 Sodium 141 mmol/L (135-145) 01/26/20 07:49 Potassium 3.6 mmol/l (3.3-5.1) 01/26/20 07:49 Chloride 109 mmol/L (96-108) H 01/26/20 07:49 Carbon Dioxide 25 mmol/L (22-29) 01/26/20 07:49 Anion Gap 11 (12-20) L 01/26/20 07:49 BUN 9 mg/dL (9-16) 01/26/20 07:49 Creatinine 0.67 mg/dL (0.5-1.4) 01/26/20 07:49 Estim Creat Clear Calc 107.9 01/26/20 07:49 Estimated GFR > 60 01/26/20 07:49 POC Glucose 114 mg/dL (60-115) 01/28/20 07:39 Random Glucose 97 mg/dL (60-115) 01/26/20 07:49 Lactic Acid 1.1 mmol/L (0.5-2.0) 01/25/20 18:55 Calcium 8.1 mg/dL (8.4-10.2) L D 01/26/20 07:49 Magnesium 2.0 mg/dL (1.6-2.6) 01/25/20 18:55 Total Bilirubin 0.5 mg/dL (0.0-1.0) 01/25/20 18:55 Direct Bilirubin 0.2 mg/dL (0.0-0.5) 01/25/20 18:55 AST 26 U/L (5-37) 01/25/20 18:55 ALT 24 U/L (0-40) 01/25/20 18:55 Alkaline Phosphatase 67 U/L (39-117) 01/25/20 18:55 Troponin I High Sens < 3.5 ng/L (<3.5-35.0) 01/25/20 18:55 Total Protein 7.6 g/dL (6.5-8.0) 01/25/20 18:55 Albumin 4.6 g/dL (3.5-5.0) 01/25/20 18:55 Lipase 31 U/L (8-78) 01/25/20 18:55 Urine Color YELLOW 01/26/20 00:09 Urine Appearance CLEAR 01/26/20 00:09 Urine pH 6.0 (5.0-8.0) 01/26/20 00:09 Ur Specific [place] 1.010 (1.005-1.025) 01/26/20 00:09 Urine Protein NEG MG/DL (NEG-TRACE) 01/26/20 00:09 Urine Glucose (UA) NEG MG/DL (NEG) 01/26/20 00:09 Urine Ketones NEG MG/DL (NEG) 01/26/20 00:09 Urine Blood NEG (NEG) 01/26/20 00:09 Urine Nitrite NEG (NEG) 01/26/20 00:09 Ur Leukocyte Esterase NEG (NEG) 01/26/20 00:09 Coronavirus (PCR) NEGATIVE (Negative) 01/25/20 21:02 Influenza Type A (PCR) NEGATIVE (Negative) 01/25/20 21:02 Influenza Type B (PCR) NEGATIVE (Negative) 01/25/20 21:02 RSV RNA Qual (PCR) NEGATIVE (Negative) 01/25/20 21:02 Preliminary micro results at discharge 01/25/20 21:02 Blood Culture - Preliminary Blood - Venous No growth after 48 hours. 01/25/20 18:56 Blood Culture - Preliminary Blood - Venous Coagulase-neg Staphyloccocus Discharge Plan Discharge Anticipated Discharge Date/Time: 01/28/20 10:13 Patient Disposition: er [facility] Referrals: Physician,Unknown [Primary Care Provider] - Discharge Medications: New doxycycline hyclate 100 mg Tablet 100 mg PO Q12H Qty: 10 RF: 0 amoxicillin-pot clavulanate [Augmentin] 500-125 mg tablet 1 tab PO BID Qty: 10 RF: 0 Continued sennosides [senna] 8.6 mg Tablet 8.6 mg PO Q24H PRN (Reason: Constipation) RF: 0 tramadol 50 mg Tablet 100 mg PO BID RF: 0 risperidone [Risperdal] 3 mg Tablet 3 mg PO BID RF: 0 gemfibrozil [Lopid] 600 mg Tablet 600 mg PO BID RF: 0 ibuprofen 600 mg Tablet 600 mg PO Q6H PRN (Reason: Pain (Scale Score 4-6)) RF: 0 pramoxine-zinc oxide 1-12.5 % Ointment 1 appl TOPICAL Q4H PRN (Reason: Hemorrhoids) RF: 0 atorvastatin 40 mg Tablet 40 mg PO BEDTIME RF: 0 acetaminophen 325 mg Tablet 650 mg PO Q4H PRN (Reason: fever/pain) RF: 0 alprazolam 1 mg Tablet 1 mg PO BID RF: 0 bisacodyl 10 mg Suppository 10 mg VT Q24H PRN (Reason: Constipation) RF: 0 Fleet Enema 19-7 gram/118 mL Enema 118 ml VT Q24H PRN (Reason: Constipation) RF: 0 clozapine 25 mg Tablet 25 mg PO DAILY RF: 0 atenolol 50 mg Tablet 50 mg PO DAILY RF: 0 clozapine 50 mg Tablet 50 mg PO BEDTIME RF: 0 Discharge Orders: Discharge Order (Routine); Ordered 01/28/20 Ordered By: Pablo Singh Diet: advance to usual diet Activity on Discharge: As tolerated Visit Report Forms: Patient Portal Discharge page Care Plan Goals: treat cellulitis Health Concerns: see discharge instructions Plan of Treatment: p.o. antibiotic
[2020-01-28 14:27] LABS: Glucose, Whole Blood 113 mg/dL (60-115)
== END 2020-01-28 14:45 | DRG 720 ==
LOC: HO.ED 01-26 00:08 → HO.IMC 01-26 05:24
PROVIDERS: Nurse Practitioner Family; Student in an Organized Health Care Education/Training Program; Admitting Provider Internal Medicine; Emergency Provider Emergency Medicine; Visit Provider Internal Medicine
DX: A41.9 Sepsis, unspecified organism (principal); F20.9 Schizophrenia, unspecified; E78.5 Hyperlipidemia, unspecified; L03.211 Cellulitis of face; F17.210 Nicotine dependence, cigarettes, uncomplicated; E11.9 Type 2 diabetes mellitus without complications; Z87.820 Personal history of traumatic brain injury; Z20.828 Contact with and (suspected) exposure to other viral communicable diseases; Z71.6 Tobacco abuse counseling; Z79.1 Long term (current) use of non-steroidal anti-inflammatories (NSAID); Z79.891 Long term (current) use of opiate analgesic; Z79.899 Other long term (current) drug therapy
CPT/HCPCS: 0241U; 36415; 70450; 70490; 71045; 80048; 80076; 81003; 82947; 83605; 83690; 83735; 84484; 85025; 85610; 85730; 87040; 87147; 93005; 96361; 96365; 96367; 96375; 99285; 99291; J0295; J0696; J1885; J2405; J2543; J3370

== ENCOUNTER 2021-02-28 19:40 | Emergency (ER) | payer MEDICAID, SELFPAY ==
--- NOTE | ~2021-02-28 | XR_ITS ---
EXAMINATION: XR CHEST CLINICAL INFORMATION: Weakness and fever. COMPARISON: Chest radiograph dated from 01/25/2020. TECHNIQUE: 2 views of the chest were obtained. FINDINGS: Unchanged appearance of the cardiomediastinal silhouette. Low lung volumes with diffuse bronchovascular crowding and bibasilar subsegmental atelectasis. No pleural effusion or pneumothorax. No acute osseous abnormalities. XR/XR chest 2V IMPRESSION: Low lung volumes with diffuse bronchovascular crowding limiting assessment of subtle infiltrates. If indicated, consider a short-term follow-up examination.
--- NOTE | ~2021-02-28 | CT_ITS ---
EXAM: NONCONTRAST CT OF THE CHEST; NONCONTRAST CT OF THE ABDOMEN AND PELVIS INDICATION: Fall, hypotension COMPARISON: 12/12/2019 TECHNIQUE: No IV contrast was utilized. Multidetector helical imaging was performed through the chest, abdomen, and pelvis. Coronal and sagittal reformatted images were created at the technologist workstation. DOSE LOWERING TECHNIQUES: This CT examination was performed using dose optimization techniques as appropriate, variously including the following: - Automated exposure control - Adjustment of mA and/or kV according to patient size (this includes techniques or standardized protocols for targeted exams were dose is matched to indication/reason for exam; i.e. extremities or head) - Use of iterative reconstruction technique DLP: 1482 mGy-cm FINDINGS: Chest: Small amount of debris noted in the trachea. There is suboptimal assessment of the lungs due to respiratory motion artifact. There are dependent regions of opacity in the bilateral lower lobes which may represent a combination of atelectasis and consolidation, though a component of subpleural reticulation for nonspecific interstitial lung disease may also be present. No pneumothorax or pleural effusion. The visualized thyroid gland is unremarkable. There are scattered mediastinal lymph nodes, a few of which measure near the upper limits of normal in size. Cardiac size is within normal limits; no pericardial effusion. Coronary artery calcifications are present. There are scattered atherosclerotic calcifications along the aorta. No axillary lymphadenopathy is present. Abdomen/Pelvis: The liver demonstrates diffuse hypoattenuation consistent with steatosis. No intrahepatic biliary ductal dilatation. The gallbladder is unremarkable. The spleen is enlarged, measuring approximately 15.6 cm in the axial plane. The pancreas and adrenal glands are within normal limits. No hydronephrosis. There are several scattered calcifications in the bilateral kidneys measuring up to approximately 6 mm, though at least some of these may be vascular. No obstructing ureteral calculi are present. Nonspecific bilateral perinephric stranding. The urinary bladder is unremarkable. The prostate and seminal vesicles are unremarkable. Fat-containing right inguinal hernia is present. The small and large bowel are unremarkable without evidence of obstruction or pericolonic inflammatory change. The appendix is unremarkable. No free fluid or free air is present. There is atherosclerotic calcification along the aorta. No intra-abdominal or retroperitoneal hematoma is seen. No retroperitoneal or pelvic lymphadenopathy is seen. Redemonstrated chronic anterior wedge compression deformity of T12. There is facet arthropathy of the lumbar spine. No acute fracture identified. CT/CT abdomen pelvis wo con IMPRESSION: 1. No acute fracture identified. No intra-abdominal or retroperitoneal hematoma. 2. Dependent pulmonary opacities in the lower lobes, which could reflect a combination of atelectasis and mild consolidation. Component of nonspecific interstitial lung disease may also be present. 3. Coronary artery calcifications. Correlation with cardiac risk factors is recommended. 4. Hepatic steatosis. 5. Splenomegaly.
--- NOTE | ~2021-02-28 | CT_ITS ---
EXAMINATION: CT HEAD WITHOUT CONTRAST CLINICAL INFORMATION: Hypotension, altered mental status, fall. COMPARISON: CT head dated from 01/25/2020. TECHNIQUE: Contiguous axial imaging was performed from the skull base to vertex without intravenous administration of contrast. This CT examination was performed using dose optimization techniques as appropriate, variously including the following: *Automated exposure control *Adjustment of mA and/or kV according to patient size (this includes techniques or standardized protocols for targeted exams where dose is matched to indication/reason for exam; i.e. extremities or head) *Use of iterative reconstruction technique DLP: 726 mGy-cm FINDINGS: Examination is in part limited by motion. There is no evidence of acute intracranial hemorrhage or edematous territorial infarction. Scattered hypoattenuation in the periventricular and deep white matter are consistent with moderate microangiopathy. Harkins-white matter differentiation is preserved. Proportional prominence of the ventricles and sulcal spaces. Mineralization of the bilateral basal ganglia. No evidence for obstructive hydrocephalus. No abnormal mass effect or midline shift. No extra-axial fluid collections. No acute soft tissue or osseous abnormalities. Partial opacification of the ethmoidal air cells with a large mucous retention cyst in the right maxillary sinus. The mastoids are clear. CT/CT head/brain wo con IMPRESSION: 1. No evidence of acute intracranial hemorrhage or edematous territorial infarction. 2. Chronic microangiopathy and generalized cerebral volume loss.
[2021-02-28 19:50] VITALS: BP 114/65; PULSE 115; RESP 20; TEMP 36.8; O2SAT 95; BMI 34.3
--- NOTE | 2021-02-28 19:58 | ECG_ITS ---
Test Reason : weakness Blood Pressure : / mmHG Vent. Rate : 111 BPM Atrial Rate : 111 BPM P-R Int : 142 ms QRS Dur : 092 ms QT Int : 332 ms P-R-T Axes : 051 -15 008 degrees QTc Int : 451 ms Sinus tachycardia Possible Left atrial enlargement Anterior infarct , age undetermined Abnormal ECG When compared with ECG of 25-JAN-2020 19:15, No significant change was found Referred By: Samantha Santos Electronically Signed By:KYLE MORILLO MD
--- NOTE | 2021-02-28 20:16 | ED.WEAKNESS ---
HPI - Weakness General Chief complaint: Weakness Stated complaint: sepsis alert(fever, hypotension, tachy) Time Seen by Provider: 02/28/21 19:53 Source: EMS Mode of arrival: EMS Limitations: altered mental status History of Present Illness HPI Narrative: 65-year-old male with a history of schizophrenia, hypertension, high cholesterol, diabetes, dementia coming from a [facility] with reports of weakness, lethargy and fever noted today. Per EMS patient was noted to have a fever at the facility of 99.9 with blood pressure 86/48 (per nursing staff at [facility]). He received 250 mL of normal saline prior to arrival and for EMS his blood pressure was normal. The patient is confused at baseline and per staff he is at his baseline. Per staff he has not had any cough, runny nose, shortness of breath, chest pain, vomiting, diarrhea, rash. Difficult to obtain review of systems from patient due to baseline confusion ? fall this afternoon but details not available from EMS, nursing. Related Data Home Medications Medication Instructions Recorded Confirmed acetaminophen 325 mg tablet 650 mg PO Q4H PRN 01/28/20 01/28/20 alprazolam 1 mg tablet 1 mg PO BID 01/28/20 01/28/20 atenolol 50 mg tablet 50 mg PO DAILY 01/28/20 01/28/20 atorvastatin 40 mg tablet 40 mg PO BEDTIME 01/28/20 01/28/20 bisacodyl 10 mg rectal suppository 10 mg NJ Q24H PRN 01/28/20 01/28/20 clozapine 25 mg tablet 25 mg PO DAILY 01/28/20 01/28/20 clozapine 50 mg tablet 50 mg PO BEDTIME 01/28/20 01/28/20 gemfibrozil 600 mg tablet (Lopid) 600 mg PO BID 01/28/20 01/28/20 ibuprofen 600 mg tablet 600 mg PO Q6H PRN 01/28/20 01/28/20 pramoxine 1 %-zinc oxide 12.5 % 1 appl TOPICAL Q4H PRN 01/28/20 01/28/20 topical ointment risperidone 3 mg tablet (Risperdal) 3 mg PO BID 01/28/20 01/28/20 sennosides 8.6 mg tablet (senna) 8.6 mg PO Q24H PRN 01/28/20 01/28/20 sodium phosphates 19 gram-7 118 ml NJ Q24H PRN 01/28/20 01/28/20 gram/118 mL enema (Fleet Enema) tramadol 50 mg tablet 100 mg PO BID 01/28/20 01/28/20 Previous Rx's Medication Instructions Recorded amoxicillin 500 mg-potassium 1 tab PO BID #10 tab 01/28/20 clavulanate 125 mg tablet (Augmentin) doxycycline hyclate 100 mg tablet 100 mg PO Q12H #10 tab 01/28/20 amoxicillin 875 mg-potassium 1 tab PO BID #14 tab 03/01/21 clavulanate 125 mg tablet (Augmentin) Allergies Allergy/AdvReac Type Severity Reaction Status Date / Time No Known Allergies Allergy Verified 12/11/19 21:13 Review of Systems Review of Systems: Yes Unobtainable due to mental status (baseline dementia) [facility] Past Medical History Attestation statement: The following information was validated with the patient. Source: old records reviewed and nursing notes reviewed Medical History Hyperlipidemia Hypertension Schizophrenia Social History Social History Household Members: Other Housing: Shelter Unable to assess alcohol history related to: Unknown Alcohol intake: current Alcohol intake frequency: does not drink Alcohol type: beer Patient Tobacco Use Status: Current everyday Tobacco user Smoked in Last 30 Days: Yes Use of substances other than those prescribed or required for medical reasons: No Substance Use Type: Marijuana Advance Directives: No Advance Directives Information Provided: No service: No Current occupational status: unemployed Physical Exam Vital Signs: Vital Signs: Last Vital Signs Temp 98.1 F 03/01/21 00:00 Pulse 75 03/01/21 00:56 Resp 16 03/01/21 00:00 BP 120/62 03/01/21 00:56 Pulse Ox 96 03/01/21 00:00 BMI result Body Mass Index 34.3 Const: General: alert Orientation/consciousness: oriented to person Limitations: altered mental status HENMT: Other: Tacky mucous membranes Head: Yes normal to inspection Ears: hearing grossly normal bilaterally and TM's normal bilaterally General nose exam: Normal external nose present Face and sinus: Yes normal facial exam Mouth: Normal oral and palatal mucosa present Throat: Yes posterior oropharynx normal, Yes tonsils normal and Yes uvula midline Eyes: General: appearance normal, both eyes and all related structures Pupils: Equal, round and reactive pupils present Neck: Neck: Yes normal visual inspection, Yes full ROM, Yes no lymphadenopathy and Yes no meningeal signs Chest: Chest palpation & inspection: normal inspection of the chest Resp: Effort & Inspection: normal respiratory effort Auscultation: clear to auscultation bilaterally Cardio: Rate: regular rate Rhythm: regular rhythm Peripheral pulses: Peripheral pulses 2+ throughout GI: Inspection: Yes normal to inspection Palpation (GI): Soft to palpation and nontender Auscultation: normal bowel sounds Back/Spine/Pelvis: Thoracic/Lumbar Spine: thoracic and lumbar spine normal to inspection Skin: General skin exam: no rashes or lesions noted Neuro: General: oriented to person, moves all extremities, no meningeal signs, no focal motor deficits and normal sensation to monofilament Cranial nerves: Yes Equal, round and reactive pupils present Motor exam (neuro): 5/5 motor strength present throughout Extrem: General: Yes normal to inspection, Yes no pedal edema and Yes no calf tenderness Course Course Course Narrative: 65-year-old male with an underlying history of dementia coming from a [facility] with reports of fever, weakness, lethargy noted today. There is also remarkable fall but no details are available in regards to the fall.. Patient is at his mental status baseline per staff. On arrival the patient is mildly tachycardic. He has no fever with a normal blood pressure. Will check labs including blood cultures/lactic acid, chest x-ray, UA, EKG. 2245-patient now has a blood pressure of 93 systolic. He is obese. [place] body weight 60 kg for total fluid 1800 mL. Patient has already received 1250ml. Will give additional 550mg. No fever. Will check CT scan head/abdomen/pelvis/chest d/t possible trauma history and to r/o underlying infection. 1300-CT head is negative. CT abdomen and pelvis is unremarkable. CT chest shows what looks like a bilateral lower lobe pneumonia. The patient has no complaints of cough or shortness of breath. He has no hypoxia or tachypnea. Labs are unremarkable with the exception of leukocytosis 11.5 and indeterminate troponin with a delta. EKG shows no ischemic changes and no reports of chest pain. UA is negative for infection. Patient's blood pressure is 120/65. His baseline blood pressure on review of chart seems to be around 110-115 systolic. He is alert and at his baseline. At this time infection is suspected however patient does not require admission. He was able to tolerate oral antibiotics. Therefore a dose of Augmentin was ordered and the patient tolerated this well. Plan for discharge back to [facility]. MDM - Weakness MDM Narrative Medical decision making narrative: Underlying infection, trauma from fall. Differential Diagnosis Differential diagnosis: Likely UTI, anemia, hypoglycemia, sepsis and dehydration Medical Records Attestation: I reviewed the patient's medical records. Lab Data Attestation: I reviewed the patient's lab results. Result diagrams: 02/28/21 21:01 02/28/21 21:00 Labs: Lab Results 02/28/21 02/28/21 02/28/21 Range/Units 20:15 21:00 21:00 WBC (4.8-10.8) X10*3/uL RBC (4.60-5.80) X10*6/uL Hgb (14.0-18.0) g/dl Hct (42.0-52.0) % MCV (80.0-98.0) fL MCH (27.0-33.0) pg MCHC (31.0-36.0) g/dl RDW (11.0-16.0) % Plt Count (160-400) X10*3/uL MPV (9.4-12.4) fL Immature Gran % (Auto) (0.0-0.4) % Neut % (Auto) (45-73) % Lymph % (Auto) (20-40) % Antelope % (Auto) (2-11) % Eos % (Auto) (0-4) % Baso % (Auto) (0-2) % Lymph # (Auto) (1.2-4.9) X10*3/uL Antelope # (Auto) (0.1-1.2) X10*3/uL Eos # (Auto) (0.0-0.4) X10*3/uL Baso # (Auto) (0.0-0.2) X10*3/uL Abs Immat Gran (auto) (0.00-0.03) X10*3/uL Absolute Neuts (auto) (2.0-8.3) x10*3/uL Absolute Nucleated RBC (0.0-0.012) X10*3/uL Nucleated RBC % (auto) (0.0-0.2) /100WBC PT 14.5 H (9.9-13.0) SEC INR 1.3 H (0.9-1.1) Sodium 137 (135-145) mmol/L Potassium 3.7 (3.3-5.1) mmol/L Chloride 103 (96-108) mmol/L Carbon Dioxide 25 (22-29) mmol/L Anion Gap 13 (12-20) BUN 11 (9-16) mg/dL Creatinine 0.90 (0.5-1.4) mg/dL Estim Creat Clear Calc 80.8 Estimated GFR > 60 Random Glucose 159 H D (60-115) mg/dL Lactic Acid (0.5-2.0) mmol/L Calcium 9.6 D (8.4-10.2) mg/dL Magnesium 2.1 (1.6-2.6) mg/dL Total Bilirubin 0.6 (0.0-1.0) mg/dL Direct Bilirubin 0.2 (0.0-0.5) mg/dL AST 39 H D (5-37) U/L ALT 33 (0-40) U/L Alkaline Phosphatase 62 (39-117) U/L Troponin I High Sens (<3.5-35.0) ng/L Total Protein 7.3 (6.5-8.0) g/dL Albumin 4.4 (3.5-5.0) g/dL Urine Color Urine Appearance Urine pH (5.0-8.0) Ur Specific [place] (1.005-1.025) Urine Protein (NEG-TRACE) MG/DL Urine Glucose (UA) (NEG) MG/DL Urine Ketones (NEG) MG/DL Urine Blood (NEG) Urine Nitrite (NEG) Ur Leukocyte Esterase (NEG) Influenza Type A (PCR) NEGATIVE (Negative) Influenza Type B (PCR) NEGATIVE (Negative) RSV RNA Qual (PCR) NEGATIVE (Negative) SARS-CoV-2 RNA (RT-PCR) NEGATIVE (Negative) 02/28/21 02/28/21 02/28/21 Range/Units 21:00 21:00 21:01 WBC 11.5 H (4.8-10.8) X10*3/uL RBC 3.79 L (4.60-5.80) X10*6/uL Hgb 11.3 L (14.0-18.0) g/dl Hct 33.7 L (42.0-52.0) % MCV 88.9 (80.0-98.0) fL MCH 29.8 (27.0-33.0) pg MCHC 33.5 (31.0-36.0) g/dl RDW 13.2 (11.0-16.0) % Plt Count 170 (160-400) X10*3/uL MPV 10.4 (9.4-12.4) fL Immature Gran % (Auto) 0.3 (0.0-0.4) % Neut % (Auto) 80.1 H (45-73) % Lymph % (Auto) 12.8 L (20-40) % Antelope % (Auto) 6.3 (2-11) % Eos % (Auto) 0.2 (0-4) % Baso % (Auto) 0.3 (0-2) % Lymph # (Auto) 1.5 (1.2-4.9) X10*3/uL Antelope # (Auto) 0.7 (0.1-1.2) X10*3/uL Eos # (Auto) 0.0 (0.0-0.4) X10*3/uL Baso # (Auto) 0.0 (0.0-0.2) X10*3/uL Abs Immat Gran (auto) 0.04 H (0.00-0.03) X10*3/uL Absolute Neuts (auto) 9.2 H (2.0-8.3) x10*3/uL Absolute Nucleated RBC 0.000 (0.0-0.012) X10*3/uL Nucleated RBC % (auto) 0.0 (0.0-0.2) /100WBC PT (9.9-13.0) SEC INR (0.9-1.1) Sodium (135-145) mmol/L Potassium (3.3-5.1) mmol/L Chloride (96-108) mmol/L Carbon Dioxide (22-29) mmol/L Anion Gap (12-20) BUN (9-16) mg/dL Creatinine (0.5-1.4) mg/dL Estim Creat Clear Calc Estimated GFR Random Glucose (60-115) mg/dL Lactic Acid 1.4 (0.5-2.0) mmol/L Calcium (8.4-10.2) mg/dL Magnesium (1.6-2.6) mg/dL Total Bilirubin (0.0-1.0) mg/dL Direct Bilirubin (0.0-0.5) mg/dL AST (5-37) U/L ALT (0-40) U/L Alkaline Phosphatase (39-117) U/L Troponin I High Sens 33.4 (<3.5-35.0) ng/L Total Protein (6.5-8.0) g/dL Albumin (3.5-5.0) g/dL Urine Color Urine Appearance Urine pH (5.0-8.0) Ur Specific [place] (1.005-1.025) Urine Protein (NEG-TRACE) MG/DL Urine Glucose (UA) (NEG) MG/DL Urine Ketones (NEG) MG/DL Urine Blood (NEG) Urine Nitrite (NEG) Ur Leukocyte Esterase (NEG) Influenza Type A (PCR) (Negative) Influenza Type B (PCR) (Negative) RSV RNA Qual (PCR) (Negative) SARS-CoV-2 RNA (RT-PCR) (Negative) 03/01/21 03/01/21 Range/Units 00:22 01:01 WBC (4.8-10.8) X10*3/uL RBC (4.60-5.80) X10*6/uL Hgb (14.0-18.0) g/dl Hct (42.0-52.0) % MCV (80.0-98.0) fL MCH (27.0-33.0) pg MCHC (31.0-36.0) g/dl RDW (11.0-16.0) % Plt Count (160-400) X10*3/uL MPV (9.4-12.4) fL Immature Gran % (Auto) (0.0-0.4) % Neut % (Auto) (45-73) % Lymph % (Auto) (20-40) % Antelope % (Auto) (2-11) % Eos % (Auto) (0-4) % Baso % (Auto) (0-2) % Lymph # (Auto) (1.2-4.9) X10*3/uL [place] # (Auto) (0.1-1.2) X10*3/uL Eos # (Auto) (0.0-0.4) X10*3/uL Baso # (Auto) (0.0-0.2) X10*3/uL Abs Immat Gran (auto) (0.00-0.03) X10*3/uL Absolute Neuts (auto) (2.0-8.3) x10*3/uL Absolute Nucleated RBC (0.0-0.012) X10*3/uL Nucleated RBC % (auto) (0.0-0.2) /100WBC PT (9.9-13.0) SEC INR (0.9-1.1) Sodium (135-145) mmol/L Potassium (3.3-5.1) mmol/L Chloride (96-108) mmol/L Carbon Dioxide (22-29) mmol/L Anion Gap (12-20) BUN (9-16) mg/dL Creatinine (0.5-1.4) mg/dL Estim Creat Clear Calc Estimated GFR Random Glucose (60-115) mg/dL Lactic Acid (0.5-2.0) mmol/L Calcium (8.4-10.2) mg/dL Magnesium (1.6-2.6) mg/dL Total Bilirubin (0.0-1.0) mg/dL Direct Bilirubin (0.0-0.5) mg/dL AST (5-37) U/L ALT (0-40) U/L Alkaline Phosphatase (39-117) U/L Troponin I High Sens 21.6 (<3.5-35.0) ng/L Total Protein (6.5-8.0) g/dL Albumin (3.5-5.0) g/dL Urine Color YELLOW Urine Appearance CLEAR Urine pH 6.0 (5.0-8.0) Ur Specific [place] 1.020 (1.005-1.025) Urine Protein TRACE (NEG-TRACE) MG/DL Urine Glucose (UA) NEG (NEG) MG/DL Urine Ketones NEG (NEG) MG/DL Urine Blood NEG (NEG) Urine Nitrite NEG (NEG) Ur Leukocyte Esterase NEG (NEG) Influenza Type A (PCR) (Negative) Influenza Type B (PCR) (Negative) RSV RNA Qual (PCR) (Negative) SARS-CoV-2 RNA (RT-PCR) (Negative) Imaging Data CT scan - head: Attestation: I personally reviewed and interpreted this imaging study as follows: Radiologist's impression: FINDINGS: Examination is in part limited by motion. There is no evidence of acute intracranial hemorrhage or edematous territorial infarction. Scattered hypoattenuation in the periventricular and deep white matter are consistent with moderate microangiopathy. Harkins-white matter differentiation is preserved. Proportional prominence of the ventricles and sulcal spaces. Mineralization of the bilateral basal ganglia. No evidence for obstructive hydrocephalus. No abnormal mass effect or midline shift. No extra-axial fluid collections. No acute soft tissue or osseous abnormalities. Partial opacification of the ethmoidal air cells with a large mucous retention cyst in the right maxillary sinus. The mastoids are clear. ? CT/CT head/brain wo con IMPRESSION: 1. No evidence of acute intracranial hemorrhage or edematous territorial infarction. 2. Chronic microangiopathy and generalized cerebral volume loss. ? ECG Data Attestation: I personally reviewed and interpreted this ECG as follows: ECG interpretation date: 02/28/21 ECG interpretation time: 20:31 Interpretation: Sinus tachycardia with a rate of 111, normal NJ, normal QRS normal QT Discharge Plan Discharge Clinical Impression: Pneumonia Patient Disposition: Xfer SNF Transfer Details: [facility] Instructions: Pneumonia (ED) Prescriptions: New amoxicillin-pot clavulanate [Augmentin] 875-125 mg tablet 1 tab PO BID Qty: 14 RF: 0 No Action doxycycline hyclate 100 mg Tablet 100 mg PO Q12H Qty: 10 RF: 0 amoxicillin-pot clavulanate [Augmentin] 500-125 mg tablet 1 tab PO BID Qty: 10 RF: 0 sennosides [senna] 8.6 mg Tablet 8.6 mg PO Q24H PRN (Reason: Constipation) RF: 0 tramadol 50 mg Tablet 100 mg PO BID RF: 0 risperidone [Risperdal] 3 mg Tablet 3 mg PO BID RF: 0 gemfibrozil [Lopid] 600 mg Tablet 600 mg PO BID RF: 0 ibuprofen 600 mg Tablet 600 mg PO Q6H PRN (Reason: Pain (Scale Score 4-6)) RF: 0 pramoxine-zinc oxide 1-12.5 % Ointment 1 appl TOPICAL Q4H PRN (Reason: Hemorrhoids) RF: 0 atorvastatin 40 mg Tablet 40 mg PO BEDTIME RF: 0 acetaminophen 325 mg Tablet 650 mg PO Q4H PRN (Reason: fever/pain) RF: 0 alprazolam 1 mg Tablet 1 mg PO BID RF: 0 bisacodyl 10 mg Suppository 10 mg NJ Q24H PRN (Reason: Constipation) RF: 0 Fleet Enema 19-7 gram/118 mL Enema 118 ml NJ Q24H PRN (Reason: Constipation) RF: 0 clozapine 25 mg Tablet 25 mg PO DAILY RF: 0 atenolol 50 mg Tablet 50 mg PO DAILY RF: 0 clozapine 50 mg Tablet 50 mg PO BEDTIME RF: 0
[2021-02-28 21:03] LABS: Influenza A PCR NEGATIVE (Negative); Influenza B PCR NEGATIVE (Negative); Resp Syncy Virus RNA Qual PCR NEGATIVE (Negative); SARS COV2 PCR INHOUSE NEGATIVE (Negative)
[2021-02-28 21:09] LABS: Basophils Percent Auto 0.3 % (0-2); Eosinophils Percent Auto 0.2 % (0-4); Hematocrit 33.7 % (42.0-52.0); Hemoglobin 11.3 g/dl (14.0-18.0); Imm Gran Abs Auto 0.04 X10*3/uL (0.00-0.03); Imm Gran Pct Auto 0.3 % (0.0-0.4); Lymphocytes Absolute Auto 1.5 X10*3/uL (1.2-4.9); Lymphocytes Percent Auto 12.8 % (20-40); MANUAL DIFF FLAG NO; Mean Corpuscular HGB Conc 33.5 g/dl (31.0-36.0); Mean Corpuscular Hemoglobin 29.8 pg (27.0-33.0); Mean Corpuscular Volume 88.9 fL (80.0-98.0); Mean Platelet Volume 10.4 fL (9.4-12.4); Monocytes Absolute Auto 0.7 X10*3/uL (0.1-1.2); Monocytes Percent Auto 6.3 % (2-11); Neutrophils Absolute Auto 9.2 x10*3/uL (2.0-8.3); Neutrophils Percent Auto 80.1 % (45-73); Platelet Count 170 X10*3/uL (160-400); Red Blood Count 3.79 X10*6/uL (4.60-5.80); Red Cell Distribution Width 13.2 % (11.0-16.0); White Blood Count 11.5 X10*3/uL (4.8-10.8)
[2021-02-28 21:17] LABS: INTERNATIONAL NORM RATIO 1.3 (0.9-1.1); Prothrombin Time 14.5 SEC (9.9-13.0)
[2021-02-28 21:21] LABS: Lactic Acid 1.4 mmol/L (0.5-2.0)
[2021-02-28 21:29] LABS: Troponin-I High Sensitivity 33.4 ng/L (<3.5-35.0)
[2021-02-28 21:30] LABS: Alanine Aminotransferase 33 U/L (0-40); Albumin Level 4.4 g/dL (3.5-5.0); Alkaline Phosphatase 62 U/L (39-117); Anion Gap 13 (12-20); Aspartate Amino Transferase 39 U/L (5-37); Bilirubin Direct 0.2 mg/dL (0.0-0.5); Bilirubin Total 0.6 mg/dL (0.0-1.0); Blood Urea Nitrogen 11 mg/dL (9-16); Calcium 9.6 mg/dL (8.4-10.2); Carbon Dioxide 25 mmol/L (22-29); Chloride 103 mmol/L (96-108); Creatinine Clr Calc Pharmacy 80.8; Estimated Glomerular Filt Rate > 60; Glucose Random 159 mg/dL (60-115); Magnesium 2.1 mg/dL (1.6-2.6); Potassium 3.7 mmol/L (3.3-5.1); Sodium 137 mmol/L (135-145); Total Protein 7.3 g/dL (6.5-8.0)
[2021-02-28] MEDS: 0.9 % Sodium Chloride 1,000 ML 999 ML IV (21:44)
[2021-02-28 21:45] VITALS: BP 107/50; PULSE 103; RESP 19; O2SAT 95
[2021-02-28 22:27] VITALS: BP 94/51; PULSE 92; RESP 18; TEMP 37.2; O2SAT 94
[2021-02-28 23:03] VITALS: TEMP 36.9
[2021-02-28] MEDS: SODIUM CHLORIDE 999 ML IV (23:52)
[2021-03-01] VITALS: BP 105/58; PULSE 88; RESP 16; TEMP 36.7; O2SAT 96
[2021-03-01 00:30] LABS: Appearance Urine CLEAR; Color Urine YELLOW; Glucose Urine UA NEG (NEG); Leukocyte Esterase Urine NEG (NEG); Nitrite Urine NEG (NEG); Urine Blood NEG (NEG); Urine Ketones NEG (NEG); Urine Protein TRACE MG/DL (NEG-TRACE)
[2021-03-01 00:56] VITALS: BP 120/62; PULSE 75
[2021-03-01] MEDS: Amoxicillin/Potassium Clav 875 MG TABLET PO (01:14)
[2021-03-01 01:25] LABS: Troponin-I High Sensitivity 21.6 ng/L (<3.5-35.0)
== END 2021-03-01 02:17 | disposition skilled nursing facility (03) ==
PROVIDERS: Nurse Practitioner Family; Emergency Provider Internal Medicine
DX: J18.9 Pneumonia, unspecified organism (principal); I10 Essential (primary) hypertension; E11.9 Type 2 diabetes mellitus without complications; F03.90 Unspecified dementia, unspecified severity, without behavioral disturbance, psychotic disturbance, mood disturbance, and anxiety; Z20.822 Contact with and (suspected) exposure to COVID-19
CPT/HCPCS: 0241U; 36415; 70450; 71046; 71250; 74176; 80048; 80076; 81003; 83605; 83735; 84484; 85025; 85610; 87040; 93005; 96360; 99285

== ENCOUNTER 2022-10-25 10:29 | Outpatient (AMB) | payer MEDICAID, SELFPAY ==
[2022-10-25 10:39] VITALS: BP 115/65; PULSE 67; BMI 28.3
--- NOTE | 2022-10-25 10:39 | A.OFFVIS_ITS ---
Intake Vital Signs 10/25/22 10:39 Height 5 ft 4 in Weight 164 lb 14.492 oz BMI 28.3 BP 115/65 Blood Pressure Location Lt brachial Position Sitting Pulse 67 Intake Visit Reasons: Colonoscopy Screening Intake Note: Pipo presents in office as a new.patient for a colonoscopy screening. 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 Patient denies any cardiac or respiratory symptoms. Patient is alert to self. Very difficult to get information about his medical history. According to patient's chart no history of sleep apnea noted. Patient is not on any anticoagulation medication. No documented history of HIV, hepatitis or tuberculosis. History of hospitalization in the past for cellulitis. No documented issues with anesthesia in the past. Patient moves his bowels daily. [facility] Medical History Hyperlipidemia Hypertension Schizophrenia Social History Household Members: Other Housing: [facility] Unable to assess alcohol history related to: Unknown Alcohol intake: current Alcohol intake frequency: does not drink Alcohol type: beer Patient Tobacco Use Status: Current everyday Tobacco user Substance Use Type: Marijuana service: No Current occupational status: unemployed Review of Systems Const Denies weight gain and Denies weight loss ENT Reports no additional complaints, Denies dysphagia and Denies odynophagia Card Reports no additional complaints Resp Reports no additional complaints GI Denies abdominal pain, Denies belching, Denies melena, Denies bloating, Denies change in bowel habits, Denies dysphagia, Denies excessive flatus, Denies dyspep oksana, Denies heartburn, Denies diarrhea, Denies loose stools, Denies nausea, Denies odynophagia and Denies vomiting Reports no additional complaints Musc Reports no additional complaints Neuro Reports no additional complaints Psych Reports no additional complaints Endo Reports no additional complaints Physical Exam Vital Signs: Last Vital Signs Pulse 67 10/25/22 10:39 BP 115/65 10/25/22 10:39 BMI result Body Mass Index 28.3 Const General: healthy appearing, no acute distress and well developed Nutritional Appearance: well nourished Orientation/consciousness: oriented to person HEENT Head: Yes normal to inspection, Yes normocephalic and Yes atraumatic Face and sinus: Yes normal facial exam Mouth: Normal oral and palatal mucosa present Throat: Yes posterior oropharynx normal, Yes tonsils normal and Yes uvula midline Eyes General: appearance normal, both eyes and all related structures Neck Neck: Yes normal visual inspection, Yes full ROM and Yes trachea midline Thyroid: Thyroid normal Resp Effort & Inspection: normal respiratory effort, able to speak in complete sentences, no tracheal deviation and symmetric chest movement Auscultation: clear to auscultation bilaterally Cardio Rate: regular rate Heart sounds: S1 normal heart sound present and S2 normal heart sound present GI Inspection: Yes normal to inspection and No distended Palpation (GI): Soft to palpation, not firm, nontender and No hepatosplenomegaly present Auscultation: normal bowel sounds General: Yes no CVA tenderness Back/Spine/Pelvis Back: no CVA tenderness Skin General skin exam: elasticity normal, turgor normal and dry skin Neuro General: oriented to person Psych Appearance: grossly normal Mental Status: mental status grossly normal Speech and movement: Normal speech and movement present Assessment & Plan Assessment & Plan (1) Screen for colon cancer: Code(s): Z12.11 - Encounter for screening for malignant neoplasm of colon Plan: Patient denies any cardiac or respiratory symptoms. No documented history of sleep apnea. Patient is not on any anticoagulation medication. Directions on how to prep and clear liquid diet day before the procedure given to jail staff. Stressed importance of good bowel prep and clear liquid diet day before procedure. Patient denies any melena, hematochezia, unintentional weight loss or ribbon like stools. Denies any issues with anesthesia in the past. I will see him after the procedure, sooner on as needed basis. Patient is agreeable to this plan and verbalizes understanding of instructions. He was given the opportunity to ask questions and all questions answered. Thank you for allowing me to participate in his care Coding Level of Care Code New Pt Level 3 (36120) Diagnoses Screen for colon cancer Z12.11 Time Spent (min) 40 Comment 30 minutes spent with patient and additional 10 minutes spent reviewing his records
== END 2022-10-25 11:26 | disposition home or self-care (01) ==
PROVIDERS: Visit Provider Nurse Practitioner Family
DX: Z12.11 Encounter for screening for malignant neoplasm of colon (principal); Z01.818 Encounter for other preprocedural examination
CPT/HCPCS: 99203

== ENCOUNTER → 2022-10-25 10:29 | Outpatient (BNVA) | payer MEDICAID, SELFPAY | PROVIDERS: Visit Provider Nurse Practitioner Family | DX: Z01.818 Encounter for other preprocedural examination (principal) | CPT/HCPCS: 99202 ==

== ENCOUNTER 2023-01-05 16:48 | Emergency (ER) | payer MEDICAID, SELFPAY ==
--- NOTE | ~2023-01-05 | XR_ITS ---
EXAMINATION: XR CHEST CLINICAL INFORMATION: Fall. COMPARISON: CT chest 02/28/2021. Chest radiograph 02/28/2021. TECHNIQUE: Frontal view of the chest was obtained. FINDINGS: Diffuse interstitial coarsening with mild bibasilar hazy airspace opacities. Suspect small amount of left-sided pleural fluid. No pneumothorax. Unchanged cardiomediastinal silhouette. Atherosclerotic disease of the thoracic aorta. No acute osseous findings. XR/XR chest 1V IMPRESSION: Diffuse interstitial coarsening with mild bibasilar hazy airspace opacities and small amount of left-sided pleural fluid, concerning for an infectious/inflammatory process and likely as well some degree of pulmonary edema. No evidence of displaced osseous fractures.
--- NOTE | ~2023-01-05 | CT_ITS ---
EXAMINATION: CT HEAD WITHOUT CONTRAST CLINICAL INFORMATION: Head injury and fall COMPARISON: CT head from 02/28/2021 TECHNIQUE: Contiguous axial imaging was performed from the skull base to vertex without intravenous administration of contrast. This CT examination was performed using dose optimization techniques as appropriate, variously including the following: *Automated exposure control *Adjustment of mA and/or kV according to patient size (this includes techniques or standardized protocols for targeted exams where dose is matched to indication/reason for exam; i.e. extremities or head) *Use of iterative reconstruction technique DLP: 1184 mGy-cm FINDINGS: There is no evidence of acute intracranial hemorrhage or territorial infarction. Chronic white matter small vessel ischemic changes. Cerebral atrophy with commensurate ventricular changes. No abnormal mass effect or midline shift is seen. Harkins to white matter differentiation is well preserved. No extra-axial fluid collections are identified. The ventricles are normal in size. There is no abnormal attenuation within the brain parenchyma. The osseous structures and soft tissues are normal. Mucoperiosteal thickening of the ethmoid and frontal sinuses. The mastoid air cells and visualized portions of the paranasal sinuses are well aerated. Vertebral basilar and internal carotid artery calcifications. CT/CT cervical spine wo IV con IMPRESSION: 1. No acute intracranial pathology. 2. Chronic white matter small vessel ischemic changes. EXAMINATION: Noncontrast CT scan of the cervical spine. INDICATION: Head injury after fall COMPARISON: None. TECHNIQUE: Helical, multidetector axial images were obtained from the occiput to the upper thorax. Coronal and sagittal reformats of the cervical spine were provided for interpretation. DLP: 1184 mGy-cm FINDINGS: No acute fractures or dislocations of the cervical spine are seen. Multilevel degenerative changes. Anatomic alignment and positioning of the vertebral bodies and posterior elements is noted. The atlantoaxial joint and craniovertebral articulations are normal without evidence of subluxation. There is no prevertebral soft tissue swelling. Hypodense focus right thyroid lobe measuring 8 mm. Based on the recommendations of the ACR Incidental Thyroid Findings Committee (JACR 2014; 12(2):143-50), no imaging followup is recommended for incidental thyroid nodules with largest axial dimension less than 1.5 cm in patients greater than 35 years of age in the absence of high risk imaging features, symptomatic thyroid disease, or increased risk for thyroid cancer. Biapical pleural parenchymal scarring with interstitial changes. IMPRESSION: 1. No acute visible fracture or dislocation. 2. Multilevel degenerative changes.
[2023-01-05 17:01] VITALS: BP 137/82; BP 141/64; PULSE 89; PULSE 90; RESP 18; O2SAT 100; O2SAT 94; BMI 21.8
--- NOTE | 2023-01-05 17:40 | ED.FALL ---
HPI - Fall General Chief Complaint: Fall Stated Complaint: HEAD PAIN AFTER 2 RECENT FALLS - LOC Time Seen by Provider: 01/05/23 17:31 Source: patient, EMS, RN notes reviewed and old records reviewed Mode of arrival: EMS Limitations: physical limitation History of Present Illness HPI Narrative: 67yo who is a car 1 resident was sent for evaluation of a fall at the assisted with head injury, patient is a poor historian at base line, in the ED is not able to provide history and has no complaints, not on AC as per records. Related Data Home Medications Medication Instructions Recorded Confirmed acetaminophen 325 mg tablet 650 mg PO Q4H PRN fever/pain 01/28/20 01/28/20 alprazolam 1 mg tablet 1 mg PO BID 01/28/20 01/28/20 atenolol 50 mg tablet 50 mg PO DAILY 01/28/20 01/28/20 atorvastatin 40 mg tablet 40 mg PO BEDTIME 01/28/20 01/28/20 bisacodyl 10 mg rectal suppository 10 mg MT Q24H PRN Constipation 01/28/20 01/28/20 clozapine 25 mg tablet 25 mg PO DAILY 01/28/20 01/28/20 clozapine 50 mg tablet 50 mg PO BEDTIME 01/28/20 01/28/20 gemfibrozil 600 mg tablet (Lopid) 600 mg PO BID 01/28/20 01/28/20 ibuprofen 600 mg tablet 600 mg PO Q6H PRN Pain (Scale 01/28/20 01/28/20 Score 4-6) pramoxine 1 %-zinc oxide 12.5 % 1 appl topical Q4H PRN Hemorrhoids 01/28/20 01/28/20 topical ointment risperidone 3 mg tablet (Risperdal) 3 mg PO BID 01/28/20 01/28/20 sennosides 8.6 mg tablet (senna) 8.6 mg PO Q24H PRN Constipation 01/28/20 01/28/20 sodium phosphates 19 gram-7 118 ml MT Q24H PRN Constipation 01/28/20 01/28/20 gram/118 mL enema (Fleet Enema) tramadol 50 mg tablet 100 mg PO BID 01/28/20 01/28/20 Previous Rx's Medication Instructions Recorded doxycycline hyclate 100 mg tablet 100 mg PO Q12H #10 tabs 01/28/20 Allergies Allergy/AdvReac Type Severity Reaction Status Date / Time No Known Allergies Allergy Verified 01/05/23 17:11 Review of Systems Review of Systems: All other systems are reviewed and are negative Constitutional: Reports as per HPI and Reports no additional constitutional complaints Eyes: Reports as per HPI and Reports no additional eye complaints Reports system reviewed and no additional complaints, except as documented Cardiovascular: Reports as per HPI and Reports no additional cardiovascular complaints Respiratory: Reports as per HPI and Reports no additional respiratory complaints Gastrointestinal: Reports as per HPI and Reports no additional gastrointestinal complaints Genitourinary: Reports no additional female genitourinary complaints Musculoskeletal: Reports no additional musculoskeletal complaints Skin/Breast: Reports system reviewed and no additional complaints, except as docu Psychiatric: Reports no additional psychiatric complaints Endocrine: Reports no additional endocrine complaints Hematologic/Lymphatic: Reports no additional hematologic/lymphatic complaints Allergic/Immunologic: Reports no additional allergic/immunologic complaints Reports system reviewed and no additional complaints, except as documented and Reports Abnormal speech present [facility] Past Medical History Medical History Hypertension Hyperlipidemia Schizophrenia Social History Social History Household Members: Other Housing: [facility] Unable to assess alcohol history related to: Unknown Alcohol intake: never Patient Tobacco Use Status: Current everyday Tobacco user Smoked in Last 30 Days: Yes Substance Use Type: Marijuana Advance Directives: Yes Advance Directives Information Provided: No Advance Directives on File: No service: No Current occupational status: unemployed Physical Exam Vital Signs: Vital Signs: Last Vital Signs Pulse 90 01/05/23 17:01 Resp 18 01/05/23 17:01 BP 141/64 H 01/05/23 17:01 Pulse Ox 94 01/05/23 17:01 O2 Del Method Room Air 01/05/23 17:01 BMI result Body Mass Index 21.8 Vital signs have been reviewed and appear to be correct. Blood pressure elevated. Heart rate normal. Respiratory rate normal. Temperature normal. Oxygen saturation normal. Appearance: Alert. Awake. No acute distress. Head: Normal external exam. Normocephalic. Atraumatic. No Downs signs noted. No raccoon eyes noted Eyes: PERRLA. EOMI. Conjunctiva and sclera normal. Eyelids normal. ENT: TM's Normal. Pharynx normal. Uvula midline. Moist mucous membranes. No trismus noted. No drooling noted. No muffled voice noted. Neck: Normal inspection. Neck supple. FROM. No adenopathy. Thyroid Normal. No meningeal signs. No neck mass noted. CVS: Normal heart rate and rhythm. Heart sound normal. No murmurs noted. Pulses normal throughout. Respiratory: No respiratory distress. Painless inspiration. Breath sounds normal. No wheezes/rales/rhonchi noted. Chest nontender. No accessory muscle usage noted or decreased air movement noted. Abdomen: Soft and nontender. Bowel sounds normal in all 4 quadrants. No distention noted. No organomegaly noted. No visible injury noted. Back: No CVA tenderness. Full range of motion noted. Skin: Skin warm and dry. Normal skin color. Normal skin turgor. No rashes/lesions/lacerations noted. Extremities: No lower extremity edema. Extremities exhibit normal range of motion. Extremities nontender. Neuro: Cranial nerve exam: II-XII are grossly intact No motor deficit. No sensory deficit. Reflexes normal. Course Reevaluation(s) Reevaluation #1: 67-year-old male from assisted s/p fall witnessed by staff, concern was head/C-spine injury patient has unremarkable neuro exam, patient acting at his baseline, head/cervical spine is unremarkable, patient also have non revealing labs. Time: 19:55 Medical Decision Making Differential Diagnosis Differential Diagnoses: The differential diagnosis associated with the presentation includes (Electrolyte abnormality, severe dehydration, severe anemia, intracranial bleed, brain concussion.) Admission/Observation Consideration of admission/observation: Escalation of care including admission/observation considered Lab Data MDM Lab Attestation statement: I reviewed the patient's lab results. 01/05/23 18:46 01/05/23 18:46 Labs: Lab Results 01/05/23 Range/Units 18:46 WBC 6.7 (4.8-10.8) X10*3/uL RBC 3.82 L (4.60-5.80) X10*6/uL Hgb 11.3 L (14.0-18.0) g/dl Hct 33.0 L (42.0-52.0) % MCV 86.4 (80.0-98.0) fL MCH 29.6 (27.0-33.0) pg MCHC 34.2 (31.0-36.0) g/dl RDW 13.3 (11.0-16.0) % Plt Count 139 L (160-400) X10*3/uL MPV 10.1 (9.4-12.4) fL Immature Gran % (Auto) 0.5 H (0.0-0.4) % Neut % (Auto) 74.3 H (45-73) % Lymph % (Auto) 15.6 L (20-40) % [place] % (Auto) 9.2 (2-11) % Eos % (Auto) 0.2 (0-4) % Baso % (Auto) 0.2 (0-2) % Lymph # (Auto) 1.0 L (1.2-4.9) X10*3/uL [place] # (Auto) 0.6 (0.1-1.2) X10*3/uL Eos # (Auto) 0.0 (0.0-0.4) X10*3/uL Baso # (Auto) 0.0 (0.0-0.2) X10*3/uL Abs Immat Gran (auto) 0.03 (0.00-0.03) X10*3/uL Absolute Neuts (auto) 5.0 (2.0-8.3) x10*3/uL Absolute Nucleated RBC 0.000 (0.0-0.012) X10*3/uL Nucleated RBC % (auto) 0.0 (0.0-0.2) /100WBC Sodium 137 (135-145) mmol/L Potassium 3.6 (3.3-5.1) mmol/L Chloride 102 (96-108) mmol/L Carbon Dioxide 25 (22-29) mmol/L Anion Gap 14 (12-20) BUN 12 (9-16) mg/dL Creatinine 0.77 (0.5-1.4) mg/dL Estim Creat Clear Calc 95.8 Estimated GFR > 60 Random Glucose 114 (60-115) mg/dL Calcium 9.7 (8.4-10.2) mg/dL Total Bilirubin 0.5 (0.0-1.0) mg/dL Direct Bilirubin 0.2 (0.0-0.5) mg/dL AST 30 (5-37) U/L ALT 16 (0-40) U/L Alkaline Phosphatase 57 (39-117) U/L Troponin I High Sens < 2.7 (<3.5-35.0) ng/L Total Protein 7.8 (6.5-8.0) g/dL Albumin 4.3 (3.5-5.0) g/dL Lipase 32 (8-78) U/L Independent Interpretation I performed an independent interpretation of an: CT Scan (Head/C-spine: No acute intracranial/cervical spine pathology.) Radiology Impression Discussion of test interpretation with radiology: I have reviewed the radiologist's reading. Discharge Plan Discharge Clinical Impression: Accident due to mechanical fall without injury Qualifiers: Encounter type: initial encounter Qualified Code(s): W19.XXXA - Unspecified fall, initial encounter Patient Disposition: Home, Self-Care Instructions: Fall Prevention for Older Adults (ED) Prescriptions: No Action doxycycline hyclate 100 mg Tablet 100 mg PO Q12H Qty: 10 0RF sennosides [senna] 8.6 mg Tablet 8.6 mg PO Q24H PRN (Reason: Constipation) tramadol 50 mg Tablet 100 mg PO BID risperidone [Risperdal] 3 mg Tablet 3 mg PO BID gemfibrozil [Lopid] 600 mg Tablet 600 mg PO BID ibuprofen 600 mg Tablet 600 mg PO Q6H PRN (Reason: Pain (Scale Score 4-6)) pramoxine-zinc oxide 1-12.5 % Ointment 1 appl TOPICAL Q4H PRN (Reason: Hemorrhoids) atorvastatin 40 mg Tablet 40 mg PO BEDTIME acetaminophen 325 mg Tablet 650 mg PO Q4H PRN (Reason: fever/pain) alprazolam 1 mg Tablet 1 mg PO BID bisacodyl 10 mg Suppository 10 mg MT Q24H PRN (Reason: Constipation) Fleet Enema 19-7 gram/118 mL Enema 118 ml MT Q24H PRN (Reason: Constipation) clozapine 25 mg Tablet 25 mg PO DAILY atenolol 50 mg Tablet 50 mg PO DAILY clozapine 50 mg Tablet 50 mg PO BEDTIME Referrals: Jose Rosas DO [Primary Care Provider] -
--- NOTE | 2023-01-05 17:46 | ECG_ITS ---
Test Reason : FALL Blood Pressure : / mmHG Vent. Rate : 087 BPM Atrial Rate : 087 BPM P-R Int : 146 ms QRS Dur : 096 ms QT Int : 340 ms P-R-T Axes : 050 -04 026 degrees QTc Int : 409 ms Normal sinus rhythm RSR' or QR pattern in V1 suggests right ventricular conduction delay Otherwise normal ECG When compared with ECG of 28-FEB-2021 20:31, Heart rate has decreased Referred By: Tish Prasad Electronically Signed By:BINTA CARMEN MD
[2023-01-05 18:52] LABS: MANUAL DIFF FLAG NO
[2023-01-05 18:53] LABS: Basophils Percent Auto 0.2 % (0-2); Eosinophils Percent Auto 0.2 % (0-4); Hemoglobin 11.3 g/dl (14.0-18.0); Imm Gran Abs Auto 0.03 X10*3/uL (0.00-0.03); Imm Gran Pct Auto 0.5 % (0.0-0.4); Lymphocytes Percent Auto 15.6 % (20-40); Mean Corpuscular HGB Conc 34.2 g/dl (31.0-36.0); Mean Corpuscular Hemoglobin 29.6 pg (27.0-33.0); Mean Corpuscular Volume 86.4 fL (80.0-98.0); Mean Platelet Volume 10.1 fL (9.4-12.4); Monocytes Absolute Auto 0.6 X10*3/uL (0.1-1.2); Monocytes Percent Auto 9.2 % (2-11); Neutrophils Percent Auto 74.3 % (45-73); Platelet Count 139 X10*3/uL (160-400); Red Blood Count 3.82 X10*6/uL (4.60-5.80); Red Cell Distribution Width 13.3 % (11.0-16.0); White Blood Count 6.7 X10*3/uL (4.8-10.8)
[2023-01-05 19:09] LABS: Alanine Aminotransferase 16 U/L (0-40); Albumin Level 4.3 g/dL (3.5-5.0); Alkaline Phosphatase 57 U/L (39-117); Anion Gap 14 (12-20); Aspartate Amino Transferase 30 U/L (5-37); Bilirubin Direct 0.2 mg/dL (0.0-0.5); Bilirubin Total 0.5 mg/dL (0.0-1.0); Blood Urea Nitrogen 12 mg/dL (9-16); Calcium 9.7 mg/dL (8.4-10.2); Carbon Dioxide 25 mmol/L (22-29); Chloride 102 mmol/L (96-108); Creatinine Clr Calc Pharmacy 95.8; Estimated Glomerular Filt Rate > 60; Glucose Random 114 mg/dL (60-115); Lipase 32 U/L (8-78); Potassium 3.6 mmol/L (3.3-5.1); Sodium 137 mmol/L (135-145); Total Protein 7.8 g/dL (6.5-8.0)
[2023-01-05 19:19] LABS: Troponin-I High Sensitivity < 2.7 ng/L (<3.5-35.0)
--- NOTE | 2023-01-05 20:15 | PC.NURSE ---
called nurse to nurse report care one gabi rn
[2023-01-05 20:21] VITALS: BP 135/61; PULSE 87; RESP 20
== END 2023-01-05 21:01 | disposition home or self-care (01) ==
PROVIDERS: Emergency Provider Emergency Medicine; PCP Hospitalist
DX: Z04.3 Encounter for examination and observation following other accident (principal); Z91.81 History of falling; E11.9 Type 2 diabetes mellitus without complications; I10 Essential (primary) hypertension; E78.5 Hyperlipidemia, unspecified; F20.9 Schizophrenia, unspecified; Z79.899 Other long term (current) drug therapy
CPT/HCPCS: 36415; 70450; 71045; 72125; 80048; 80076; 83690; 84484; 85025; 93005; 99284; 99285

== ENCOUNTER 2023-02-02 09:37 | Day surgery (SDC) | payer MEDICAID, SELFPAY ==
[2023-02-01 07:39] VITALS: BMI 27.6
--- NOTE | 2023-02-01 11:25 | HO.ANESPROP2 ---
Documented by User: Destiny Mathew NP 02/01/23 11:26 HPI - Anesthesia Eval Consult details Narrative: 67yo M for Colonoscopy [facility] Active Problems Active Problems: All Active Problems (Updated 02/01/23 @ 07:28 by Zeinab Mobley RN) Diabetes (Acute) Cellulitis (Acute) Schizophrenia (Acute) Past Medical History Medical History Dementia Dysphagia Presbyopia Cataract Diabetes Arthropathy Hypertension Hyperlipidemia Schizophrenia Social History Social History Household Members: Other Housing: [facility] Unable to assess alcohol history related to: Unknown Alcohol intake: never Comment: Telesitter Patient Tobacco Use Status: Current everyday Tobacco user Tobacco use type: Cigarette Cigarettes Per Day: 4 Substance Use Type: Marijuana Are you DNR?: No Advance Directives: No Advance Directives Information Provided: Yes Advance Directives on File: No service: No Current occupational status: unemployed Meds Allergies Allergy/AdvReac Type Severity Reaction Status Date / Time No Known Allergies Allergy Verified 01/05/23 17:11 Home Medications Medication Instructions Recorded Confirmed Last Taken Type acetaminophen 325 mg tablet 650 mg PO Q4H PRN fever/pain 01/28/20 02/01/23 Unknown History alprazolam 1 mg tablet 1 mg PO BID 01/28/20 02/01/23 Unknown History atenolol 50 mg tablet 50 mg PO DAILY 01/28/20 02/01/23 02/02/23 History atorvastatin 40 mg tablet 40 mg PO BEDTIME 01/28/20 02/01/23 Unknown History bisacodyl 10 mg rectal suppository 10 mg GA Q24H PRN Constipation 01/28/20 02/01/23 Unknown History clozapine 25 mg tablet 25 mg PO DAILY 01/28/20 02/01/23 Unknown History clozapine 50 mg tablet 50 mg PO BEDTIME 01/28/20 02/01/23 02/02/23 History gemfibrozil 600 mg tablet (Lopid) 600 mg PO BID 01/28/20 02/01/23 Unknown History ibuprofen 600 mg tablet 600 mg PO Q6H PRN Pain (Scale 01/28/20 02/01/23 Unknown History Score 4-6) pramoxine 1 %-zinc oxide 12.5 % 1 appl topical Q4H PRN Hemorrhoids 01/28/20 02/01/23 Unknown History topical ointment risperidone 3 mg tablet (Risperdal) 3 mg PO BID 01/28/20 02/01/23 02/02/23 History sennosides 8.6 mg tablet (senna) 8.6 mg PO Q24H PRN Constipation 01/28/20 02/01/23 Unknown History sodium phosphates 19 gram-7 118 ml GA Q24H PRN Constipation 01/28/20 02/01/23 Unknown History gram/118 mL enema (Fleet Enema) tramadol 50 mg tablet 100 mg PO TID 01/28/20 02/01/23 Unknown History metformin 500 mg tablet 500 mg PO BID 02/01/23 02/01/23 Unknown History miconazole nitrate 2 % topical 1 appl topical BEDTIME 02/01/23 02/01/23 Unknown History powder naloxone 4 mg/actuation nasal 4 mg intranasal Q3M PRN Opioid 02/01/23 02/01/23 Unknown History spray (Narcan) Overdose Exam Height,Weight and Vital Signs: Height 5 ft 5 in Weight 75.296 kg Pertinent Lab Results Pertinent Lab Results: Laboratory Tests 01/05/23 18:46 WBC 6.7 Hgb 11.3 L Hct 33.0 L Plt Count 139 L Sodium 137 Potassium 3.6 Chloride 102 Carbon Dioxide 25 BUN 12 Creatinine 0.77 Narrative Narrative: EKG 12/2022 Vent. Rate : 087 BPM Atrial Rate : 087 BPM P-R Int : 146 ms QRS Dur : 096 ms QT Int : 340 ms P-R-T Axes : 050 -04 026 degrees QTc Int : 409 ms Normal sinus rhythm RSR' or QR pattern in V1 suggests right ventricular conduction delay Otherwise normal ECG When compared with ECG of 28-FEB-2021 20:31, Heart rate has decreased Assessment and Plan Assessment Anesthesia Assessment: Chart Reviewed Documented by User: Logan Ray MD 02/02/23 10:25 [facility] Past Medical History Medical History Dementia Dysphagia Presbyopia Cataract Diabetes Arthropathy Hypertension Hyperlipidemia Schizophrenia Family History Family history of problems with anesthesia: No Surgical History History of Problems with Anesthesia: No Social History Social History Household Members: Other Housing: [facility] Unable to assess alcohol history related to: Unknown Alcohol intake: never Comment: Telesitter Patient Tobacco Use Status: Current everyday Tobacco user Tobacco use type: Cigarette Cigarettes Per Day: 4 Substance Use Type: Marijuana Are you DNR?: No Advance Directives: No Advance Directives Information Provided: Yes Advance Directives on File: No service: No Current occupational status: unemployed Meds Allergies Allergy/AdvReac Type Severity Reaction Status Date / Time No Known Allergies Allergy Verified 01/05/23 17:11 Home Medications Medication Instructions Recorded Confirmed Last Taken Type acetaminophen 325 mg tablet 650 mg PO Q4H PRN fever/pain 01/28/20 02/01/23 Unknown History alprazolam 1 mg tablet 1 mg PO BID 01/28/20 02/01/23 Unknown History atenolol 50 mg tablet 50 mg PO DAILY 01/28/20 02/01/23 02/02/23 History atorvastatin 40 mg tablet 40 mg PO BEDTIME 01/28/20 02/01/23 Unknown History bisacodyl 10 mg rectal suppository 10 mg GA Q24H PRN Constipation 01/28/20 02/01/23 Unknown History clozapine 25 mg tablet 25 mg PO DAILY 01/28/20 02/01/23 Unknown History clozapine 50 mg tablet 50 mg PO BEDTIME 01/28/20 02/01/23 02/02/23 History gemfibrozil 600 mg tablet (Lopid) 600 mg PO BID 01/28/20 02/01/23 Unknown History ibuprofen 600 mg tablet 600 mg PO Q6H PRN Pain (Scale 01/28/20 02/01/23 Unknown History Score 4-6) pramoxine 1 %-zinc oxide 12.5 % 1 appl topical Q4H PRN Hemorrhoids 01/28/20 02/01/23 Unknown History topical ointment risperidone 3 mg tablet (Risperdal) 3 mg PO BID 01/28/20 02/01/23 02/02/23 History sennosides 8.6 mg tablet (senna) 8.6 mg PO Q24H PRN Constipation 01/28/20 02/01/23 Unknown History sodium phosphates 19 gram-7 118 ml GA Q24H PRN Constipation 01/28/20 02/01/23 Unknown History gram/118 mL enema (Fleet Enema) tramadol 50 mg tablet 100 mg PO TID 01/28/20 02/01/23 Unknown History metformin 500 mg tablet 500 mg PO BID 02/01/23 02/01/23 Unknown History miconazole nitrate 2 % topical 1 appl topical BEDTIME 02/01/23 02/01/23 Unknown History powder naloxone 4 mg/actuation nasal 4 mg intranasal Q3M PRN Opioid 02/01/23 02/01/23 Unknown History spray (Narcan) Overdose Exam Airway Mallampati Class: III TM Dist: >3cm Neck ROM: Full Loose/Missing/Broken Teeth: Yes Heart: [id number] Lungs: cta b/l Assessment and Plan Assessment Anesthesia Assessment: Anesthesia Plan Discussed Final Anesthetic Review Family History of Problems with Anesthesia: No History of Problems with Anesthesia: No NPO: Yes ASA Class: III Final Preanesthetic Review: No Changes in Pt Med Stat, Meds/Allgs Chart Reviewed, Consent Obtained/Reviewed and Anes Risks/Benef Reviewed Patient Risk: Intermediate Procedure Risk: Intermediate Assessment/Block/Sedation in SS: Assess/Block/Sedation-SS Anesthetic Plan Anesthetic Plan: MAC: and Agree w/ Assess. and Plan Disposition: Standard PACU
[2023-02-02 09:49] VITALS: BP 130/85; PULSE 82; RESP 20; TEMP 36.9; O2SAT 96
[2023-02-02 09:50] VITALS: BMI 26.6
--- NOTE | 2023-02-02 09:50 | P.HPSUR_ITS ---
Pre-Procedural Eval Section A Date of Service: 02/02/23 Section B Chief Complaint: Encounter for screening for malignant neoplasm of Relevant Family History (Specify if Yes): No Relevant Social History: Tobacco Use Present Medications: see Short Stay Collaborative assessment Medical History: Significant History (Dementia Dysphagia Presbyopia Cataract Diabetes Arthropathy Hypertension Hyperlipidemia Schizophrenia) History of Previous Operations: No relevant previous surgery Allergies: Allergies Allergy/AdvReac Type Severity Reaction Status Date / Time No Known Allergies Allergy Verified 01/05/23 17:11 Review of Systems Sugical H&P ROS: Negative: Constitution, Cardiovascular, Respiratory, Neurological, Psychiatric, Hem-Onc, Allergic/Immunologic, Gastrointestinal, Genitourinary, Musculoskeletal, Integumentary, Endocrine and Eyes/Ears/Nose/Throat Exam Surgical H&P Exam: Normal: HEENT, Normal: Heart, Normal: Lungs, Normal: Extremities, Normal: Abdomen and Normal: Skin and Significant Findings: Neurol ogical (dementia) Plan Diagnosis/Plan: Unchanged I have reviewed the history and physical and performed a pertinent physical examination on my patient. No changes have occurred unless specified. Time Spent With Patient Time: Total time managing care of this patient today ____ minutes.
[2023-02-02 09:58] LABS: Glucose, Whole Blood 136 mg/dL (60-115)
[2023-02-02] MEDS: Sodium Phosphate,Mono-Dibasic 133 ML ENEMA PR (10:03)
[2023-02-02] MEDS: Lactated Ringers 1,000 ML 100 ML IVCONT (10:03)
--- NOTE | 2023-02-02 11:02 | P.OP_ITS ---
Operative Note Operative Note Date of Service: 02/02/23 Narrative: Operative Information Procedure Description: Colonoscopy Indication: screenin Anesthesia: MAC COLONOSCOPY Instrument: Olympus variable stiffness pediatric scope 190L Colonoscopy Monitoring: Vital signs and clinical assessment, continuous EKG monitoring, Pulse oximetry, Carbon Dioxide monitoring and blood pressure monitoring were done throughout the procedure. Colon withdrawal time was 10 minutes. Procedure: The patient was placed in the left lateral decubitis position and pre-procedure medications were administered. After a digital rectal examination of the ano-rectum, the video colonoscope was inserted into the rectum and advanced through the colon to the cecum/TI. The colonoscope was slowly withdrawn in a retrograde panoramic fashion and the colon mucosa was carefully examined including a retroflexed view of the rectum. Findings and interventions are described below. Procedure Difficulty: easy Findings: Terminal Ileum-normal Cecum:normal Ascending Colon: normal Transverse Colon -normal Descending Colon: 4-6 mm sessile polyp removed with cold forceps Sigmoid Colon: normal Rectum: Retroflexion with small internal hemorrhoids, grade I, 5-6 mm sessile polyp removed with biopsy forceps, cold Anorectum - normal Colon preparation: [place] Bowel Preparation Scale Right colon; 3 Transverse colon: 2 Left colon; 1-2 (0 = Unprepared colon segment with mucosa not seen due to solid stool that cannot be cleared. 1 = Portion of mucosa of the colon segment seen, but other areas of the colon segment not well seen due to staining, residual stool and/or opaque liquid. 2 = Minor amount of residual staining, small fragments of stool and/or opaque liquid, but mucosa of colon segment seen well. 3 = Entire mucosa of colon segment seen well with no residual staining, small fragments of stool or opaque liquid) Impression and Post Procedure Diagnosis: polyps internal hemorrhoids Plan: High fiber diet leaflet Avoid straining at stool, epsom salts and sitz bath, anusol supps or cream Repeat Colonoscopy in 5 years due to polyps and fair prep on left or earlier if clinically indicated Above findings were reviewed with the patient and relevant handouts were provided if indicated.
[2023-02-02 11:05] VITALS: BP 94/43; PULSE 67; RESP 16; TEMP 36.1; O2SAT 99
[2023-02-02 11:20] VITALS: BP 138/68; PULSE 64; RESP 16; O2SAT 98
[2023-02-02 11:35] VITALS: BP 141/62; PULSE 64; RESP 16; TEMP 36.2; O2SAT 99
== END 2023-02-02 11:55 | disposition home or self-care (01) ==
PROVIDERS: PCP Hospitalist; Visit Provider Internal Medicine Gastroenterology
PROC: 0DJD8ZZ Inspection of Lower Intestinal Tract, Via Natural or Artificial Opening Endoscopic (ICD-10-PCS; CPT 45378; principal; 2023-02-02 11:20)
DX: Z12.11 Encounter for screening for malignant neoplasm of colon (principal); D12.4 Benign neoplasm of descending colon; K62.1 Rectal polyp; K64.0 First degree hemorrhoids; R13.10 Dysphagia, unspecified; F03.90 Unspecified dementia, unspecified severity, without behavioral disturbance, psychotic disturbance, mood disturbance, and anxiety; F20.9 Schizophrenia, unspecified; H52.4 Presbyopia; E11.9 Type 2 diabetes mellitus without complications; I10 Essential (primary) hypertension; E78.5 Hyperlipidemia, unspecified; M12.9 Arthropathy, unspecified; Z79.1 Long term (current) use of non-steroidal anti-inflammatories (NSAID); Z79.899 Other long term (current) drug therapy; Z79.84 Long term (current) use of oral hypoglycemic drugs; F17.210 Nicotine dependence, cigarettes, uncomplicated
CPT/HCPCS: 45380; 82947; 88305; J2704

== ENCOUNTER → 2023-02-02 09:37 | Outpatient (BNV) | payer MEDICAID, SELFPAY | PROVIDERS: PCP Hospitalist; Visit Provider Internal Medicine Gastroenterology | DX: Z12.11 Encounter for screening for malignant neoplasm of colon (principal); D12.4 Benign neoplasm of descending colon; D12.8 Benign neoplasm of rectum; K64.0 First degree hemorrhoids | CPT/HCPCS: 45380 ==